=== PATIENT | male | born 1955 | race African-American/Black ===

== ENCOUNTER 2020-09-15 15:56 | Inpatient (IN) | payer OTHER ==
[~2020-09-15] VITALS: Ht 182.9 cm; Wt 119.3 kg
[2020-09-15] MEDS ORDERED: dexAMETHasone 10mg/ml Inj IV ONE (16:45)
[2020-09-15] MEDS ORDERED: Azithromycin 250 MG in NS 275 ML IV ONE ×2 (16:45)
[2020-09-15] MEDS ORDERED: cefTRIAXone 1 GM in NS 55 ML IVPB ONE (16:45)
--- NOTE | 2020-09-15 17:00 | NUR ---
ED Nurse Note: Pt placed on bed 7.
[2020-09-15] MEDS ORDERED: levETIRAcetam 1,000mg/NS100ml 100 ML IVPB ONE (17:15)
--- NOTE | 2020-09-15 18:00 | NUR ---
ED Nurse Note: Pt was brought in by MIHAI from [facility] d/t resp distress. Per ems pt was desatting unk sat on RA, now placed on a non-breather satting at 100%. Pt's FULL CODE, non-verbal, withdraws to pain, confused at all times. Pt was placed on bed and gown; hooked to monitor tech.
--- NOTE | 2020-09-15 18:10 | Emergency Room Report ---
History of Present Illness General Chief Complaint: General Complaint Source: Medical Record, EMS Present Illness HPI 64-year-old -Swedish male with past medical history of anoxic brain injury, secondary to previous hemorrhagic stroke, insulin-dependent diabetes, neuropathy, CAD, dyslipidemia, aortic atherosclerosis, SVT, anemia, bilateral lower extremity contracture, GERD, esophagitis, major depressive disorder, brought in by ambulance from [facility] for hypoxia. According to EMS, patient was found to be bradycardic and hypotensive. Patient is apparently full code according to the [facility] papers. According to EMS, patient was placed on nonrebreather face mask because on room air is SPO2 was 30%. Heart rate was initially 30%. After oxygen was provided, heart rate became sinus tachycardia and SPO2 improved to the high 90s. History is limited secondary to patient's clinical condition. He is altered at baseline. The patient's symptoms were gradual onset, severity was moderate, duration since unknown amount of time. Quality: Hypoxic Past medical history: See HPI Past surgical history: Unable To obtain Smoking: UTO Alcohol use: UTO Drug use: UTO Review of systems: CONST: No fevers ++chills, No night sweats PULMONARY: No productive cough, No shortness of breath CARDIAC: No chest pain, ++ palpitations GI: No vomiting, No diarrhea , No melena_or_BRBPR : No dysuria, No hematuria, No discharge NEURO: generalized_weakness_or_numbness, No confusion, No vision changes 14 point Review of Systems is otherwise negative except per HPI Physical Exam: GENERAL: Awake, chronically ill-appearing, hypoxic at 30% on room air. Currently on nonrebreather mask saturating 100%. EYES: Pupils reactive. Conjunctiva clear. ENT: External nose and ear appear normal. Oropharynx clear. Head atraumatic. NECK: No thyromegaly. No midline tenderness. LUNGS: Increased respiratory effort. Coarse breath sounds bilaterally. Tachypneic. CARDIAC: Tachycardic rate and rhythm. Normal radial pulses bilaterally. No significant pedal edema. ABDOMEN: Soft, nontender, and nondistended. No rebound/guarding. No hepatosplenomegaly. In soiled diaper MSK: Poor muscle tone, contractures with rigidity in extremities. Extremities without asymmetric deformity or swelling. NEUROLOGIC: Awake. Does not follow commands for motor and sensory exam. No truncal ataxia. GCS 2-4-2, protecting airway, intact gag reflex. Withdraws to pain in extremities, groans and opens eyes to sternal rub. SKIN: Warm and dry. No cyanosis or urticaria present. - COORDINATION OF CARE Case was discussed with: Patient , Patient's Physician Any labs and imaging that were ordered were interpreted as part of the medical decision making: Medical Decision Making/Plan: Differential diagnosis includes sepsis / severe sepsis /septic shock UTI, pneumonia , viral syndrome, gastroenteritis, emergent abdominal infection, among others. Vitals show tachycardia, hypothermia, and hypoxia. Patient abdomen is benign, no evidence of emergent abdominal condition. Labs show leukocytosis of 18. CMP also shows several other critical values. He is hypernatremic at 165. Calculated free water deficit is 10.6 L Creatinine is elevated at 2.0. BNP is mildly elevated Patient is known COVID positive. UA shows +UTI CXR shows multifocal pneumonia. R IJ central line placed due to difficult PIV access. Sepsis bundle initiated on arrival. Blood cultures, lactate drawn. Lactate was elevated , patient was not given 30 cc/kg IV fluids by bolus due to patient refusal from his history of CAD. Empiric antibiotics were started. Patient will be admitted to the hospital for further care and evaluation. I spoke with Dr. Cody, and reviewed the patients presentation, workup, results, and treatment. They will admit the patient for further care and evaluation, and assume care of the patient at this time. - CRITICAL CARE STATEMENT - Critical care performed 75 minutes Time is exclusive of separately billable procedures. Time includes: direct patient care, patient reassessment, coordination of patient care, review of patient's medical records, medical consultation, family consultation regarding treatment decisions and documentation of patient care. Organ systems at risk: Cardiac / Circulatory. Allergies: Coded Allergies: No Known Allergies (Unverified , 09/15/20) COVID-19 Screening Contact w/high risk pt: Yes Experienced COVID-19 symptoms?: Yes COVID-19 Testing performed INSTRUCTIONAL SYSTEMS SPECIALIST: Yes COVID-19 Screening: Positive COVID-19 COVID-19 Testing Source: nasal Nursing Documentation-PMH Hx Diabetes: Yes Hx Cerebrovascular Accident: Yes Hx Seizures: Yes Physical Exam Vital Signs Date Time Temp Pulse Resp B/P (MAP) Pulse Ox O2 Delivery O2 Flow Rate FiO2 09/15/20 17:30 144 24 120/90 (100) 95 Non-Rebreather Sp02 EP Interpretation: reviewed, abnormal Procedures Central Line Progress Central Line Placement by me: Patient consented, sterilely draped, full prep, gown, glove, mask, time out performed. Maximal sterile barrier technique used. Anesthesia: 1% lidocaine locally Location: Right IJ Device: Multiple lumen Technique: Seldinger technique. Secured with suture. Results: Venous return from all ports with easy saline flush. No complications. Compl : None Guide wire was retrieved and disposed of. ED Procedural Ultrasound by me: Central line placed by me using concurrent ultrasound guidance. Real time image archived in the medical record confirms vascular anatomy. Chest X-ray 1V Interpreted by me: Central line in SVC, Normal soft tissue, No evidence of pneumothorax. Medical Decision Making Diagnostic Impression: Primary Impression: COVID-19 Additional Impressions: Hypoxia Sepsis UTI (urinary tract infection) Hypernatremia Dehydration CHF (congestive heart failure) SANDEEP (acute kidney injury) Acute hypoxemic respiratory failure due to COVID-19 EKG Diagnostic Results Troponin ordered: Yes CHRISTY Lynn 12-lead EKG (interpreted by me) Time: 1900 Indication: Rhythm analysis Tracing visualized and Interpreted by me. Rhythm: Sinus tachycardia Rate: 120 bpm QTc: 500 Morphology: No_significant_ST_elevations_or_depressions, No STEMI Impression: Sinus tachycardia. Right bundle branch block. Left anterior fascicular block. Rhythm Strip Diag. Results Rhythm Strip Time: 18:17 EP Interpretation: yes Rate: 124 Rhythm: no PVC's, no ectopy - tachycardia Chest X-Ray Diagnostic Results Chest X-Ray Diagnostic Results : CHRISTY Lynn Chest X-Ray: Views: 1 view(s) Indication: cough Findings: CM. Mediastinum normal. Impression: Perihilar infiltrate, left lower lobe atelectasis, cardiomegaly The X-ray(s) were independently viewed and interpreted contemporaneously Electronically signed by Stefanie macias DO Chest X-Ray: Views: 1 view(s) Indication: Central line Findings: CM. Mediastinum normal. Impression: Perihilar infiltrate, left lower lobe atelectasis, cardiomegaly. No pneumothorax The X-ray(s) were independently viewed and interpreted contemporaneously Electronically signed by Stefanie macias DO Reevaluation Time: 22:00 Last Vital Signs Date Time Temp Pulse Resp B/P (MAP) Pulse Ox O2 Delivery O2 Flow Rate FiO2 09/15/20 17:30 144 24 120/90 (100) 95 Non-Rebreather Status: improved Disposition: ADMITTED INPATIENT Admit Decision Time: 18:17 Condition: Serious Referrals: Sonido Walker MD (PCP) Stefanie Mello D.O. Sep 15, 2020 18:10
[2020-09-15 18:25] VITALS: BP 120/90
[2020-09-15 18:36] LABS: HEMATOCRIT 53.3 % (42.0-52.0); HEMOGLOBIN 15.6 G/DL (14.2-18.0); MEAN CORPUSCULAR VOLUME 92 FL (80-99); PLATELET COUNT 344 K/UL (150-450); RED CELL DISTRIBUTION WIDTH 15.1 % (11.6-14.8); WHITE BLOOD COUNT 18.3 K/UL (4.8-10.8)
[2020-09-15] MEDS ORDERED: Piperacillin/Tazobactam 3.375 GM in NS 110 ML IVPB ONE (19:00)
[2020-09-15 19:01] LABS: APPEARANCE,URINE SLIGHTLY CLOUDY; BILIRUBIN, URINE NEGATIVE (NEGATIVE); GLUCOSE, URINE (UA) NEGATIVE (NEGATIVE); KETONES,URINE 1+ (NEGATIVE); LEUKOCYTE ESTERASE ,URINE 2+ (NEGATIVE); NITRITE,URINE NEGATIVE (NEGATIVE); PH,URINE 5 (4.5-8.0); PROTEIN,URINE 2+ (NEGATIVE); UROBILINOGEN,URINE 1 MG/DL (0.0-1.0)
[2020-09-15 19:02] LABS: COLOR,URINE YELLOW
--- NOTE | 2020-09-15 19:06 | NUR ---
ED Nurse Note: ERMD at bedside for central line placement
[2020-09-15] MEDS ORDERED: Lidocaine 1% Plain 30 ml INJ ONE ×2 (19:15→19:18)
[2020-09-15] MEDS ORDERED: Lidocaine 2% 20mg/ml/Epi 0.005mg/ml 20ml vial ONE (19:17)
--- NOTE | 2020-09-15 19:31 | NUR ---
ED Nurse Note: hand off given to cristi cordoba.
[2020-09-15 21:04] LABS: ALANINE AMINOTRANSFERASE 24 U/L (12-78); ALBUMIN/GLOBULIN RATIO 0.6 (1.0-2.7); ALKALINE PHOSPHATASE 120 U/L (46-116); ANION GAP 12 mmol/L (5-15); ASPARTATE AMINO TRANSFERASE 23 U/L (15-37); BILIRUBIN,TOTAL 0.7 MG/DL (0.2-1.0); BLOOD UREA NITROGEN 68 mg/dL (7-18); CALCIUM 9.7 MG/DL (8.5-10.1); CARBON DIOXIDE 27 MMOL/L (21-32); CHLORIDE 126 MMOL/L (98-107); CREATINE KINASE 304 U/L (26-308); FERRITIN 500 NG/ML (8-388); LACTATE DEHYDROGENASE 206 U/L (81-234); POTASSIUM 3.9 MMOL/L (3.5-5.1)
[2020-09-15 21:06] LABS: SODIUM 165 MMOL/L (136-145)
--- NOTE | 2020-09-15 21:38 | NUR ---
ED Nurse Note: Anythimg please contact his sister kacie [phone]
[2020-09-15 21:47] LABS: INR 1.2 (0.9-1.1)
--- NOTE | 2020-09-15 22:35 | NUR ---
NURSE NOTES: Received report from ROBERTO Morales. Pt arrive obtunded, non-verbal. No apparent distress noted. On NRB 15L O2 saturation at 100%. HR is 122, other vitals are within normal range. Skin issues found, wound care consult needed. R IJ is intact and asymptomatic, R hand 20g is intact and asymptomatic. Seizure precautions initiated. HOb elevated, side rails x3, bed alarmed, locked, and in lowest position. Will continue to monitor.
--- NOTE | 2020-09-15 23:45 | NUR ---
NURSE NOTES: Spoke with Dr. Cody for admission orders. Received orders for ID, wound care, pulmo, and cardio consults. Told pt receives Plavix 75mg at SNF for DVT ppx, received orders for heparin 5000units BID for DVT ppx. Hx of DM, received orders for accucheck Q6H and novolog sliding scale. ST eval order placed, will keep pt NPO until further notice. Started pt on D5W at 75cc/hr and cefepime 1gm. Will obtain EKG at [address] All orders read back and confirmed. Will continue to monitor.
[2020-09-16] VITALS: BP 126/84
[2020-09-16] MEDS ORDERED: NORVASC5 MG ORAL (00:11)
[2020-09-16] MEDS ORDERED: CARVEDILOL3.125 MG ORAL (00:12)
[2020-09-16] MEDS ORDERED: DOCUSATE SODIU100 M2 ORAL (00:13)
[2020-09-16] MEDS ORDERED: EFFER-K 20 MEQ20 MEQ PO (00:13)
[2020-09-16] MEDS ORDERED: GUAIFENESI100 MG/5 M ORAL (00:14)
[2020-09-16] MEDS ORDERED: KEPPRA LIQ100 MG/1 M ORAL (00:17)
[2020-09-16] MEDS ORDERED: LISINOPRIL5 MG ORAL (00:18)
[2020-09-16] MEDS ORDERED: PANTOPRAZOLE SO40 MG ORAL (00:19)
[2020-09-16] MEDS ORDERED: PLAVIX75 MG ORAL (00:19)
[2020-09-16] MEDS ORDERED: ACETAMINOPHEN325 M1 ORAL (00:20)
[2020-09-16] MEDS ORDERED: guaiFENesin 100mg/5ml Liq ud ORAL PRN (02:15)
--- NOTE | 2020-09-16 02:31 | NUR ---
NURSE NOTES: Pt remains stable at this time. site monitor shows ST, SpO2 100% on NRB 15L. No signs of distress or pain. Will continue to monitor.
[2020-09-16 04:00] VITALS: BP 134/79
[2020-09-16] MEDS ORDERED: LORazepam Inj 2mg/ml 1ml IV PRN (04:15)
--- NOTE | 2020-09-16 04:16 | NUR ---
NURSE NOTES: Pt had a 3 minute seizure episode and a 2 minute seizure episode, 1 minute apart. No desaturation noted during seizure. Vital signs currently stable. Called Dr. Cody, left . Called Dr. Alberts, received orders for ativan 1mg IVP as needed. Noted and will carry out.
--- NOTE | 2020-09-16 04:56 | NUR ---
NURSE NOTES: No seizures noted at this time. Vital signs stable. Will continue to monitor.
[2020-09-16] MEDS: NovoLOG Insulin Flexpen SUBQ SCH ×4 (05:29→21:00)
[2020-09-16] MEDS ORDERED: Cefepime HCl 1 GM in D5W 55 ML IVPB SCH ×2 (06:00→18:00)
[2020-09-16] MEDS ORDERED: NovoLOG Insulin Flexpen SUBQ SCH (06:30)
--- NOTE | 2020-09-16 07:05 | NUR ---
NURSE HAND-OFF REPORT: Important Events on Shift:[Admitted to the unit] Patient Status: [Stable] Diet: [NPO until ST Eval] Pending Orders: [NA] Pending Results/Labs:[NA] Pending MD notification:[NA] Latest Vital Signs: Temperature 97.2 , Pulse 87 , B/P 134 /79 , Respiratory Rate 20 , O2 SAT 100 , Non-Rebreather, O2 Flow Rate 15.0 . Vital Sign Comment: [Stable] EKG Rhythm: Sinus Rhythm Rhythm change?: N Notified?: Evelio Parada MD MD Response: Latest Meeks Fall Score: 50 Fall Risk: High Risk Safety Measures: Call light Within Reach, Bed Alarm Zone 1, Side Rails Side Rails x3, Bed position Low and Locked. Fall Precautions: Yellow Socks Yellow Gown Door Sign Patient Fall Education Report given to [ROBERTO Combs].
--- NOTE | 2020-09-16 07:30 | NUR ---
NURSE NOTES: Received patient in bed. Awake, A/O x3, panamanian speaking only. On BiPAP with settings as ordered. IV in the Right hand, infusing IVf as ordered. Bed low and locked, side rails up x2, call light within reach with return demonstration. Addendum: 09/16/20 at 0754 by Garret Washington RN Wrong patient.
--- NOTE | 2020-09-16 07:30 | NUR ---
NURSE NOTES: Received patient in bed. Patient is nonverbal, nonrebreather in place. Right IJ and Right forearm in place, site intact infusing IVf as ordered. Bed low and locked, side rial sails up x2, call light within reach - unable to return demonstration. Condom catheter in place.
[2020-09-16 08:00] VITALS: BP 151/85
[2020-09-16] MEDS: levETIRAcetam 500mg/5ml Liquid ORAL SCH ×2 (09:00→20:54)
[2020-09-16] MEDS: Docusate 100mg cap ORAL SCH (09:00)
[2020-09-16] MEDS: Lisinopril 2.5mg tab ORAL SCH (09:01)
[2020-09-16] MEDS: dexAMETHasone 10mg/ml Inj IV SCH (09:01)
[2020-09-16] MEDS: Heparin 5000 units/ml inj SUBQ SCH ×2 (09:05→20:57)
--- NOTE | 2020-09-16 09:09 | Cardiac Electrophysiology PN ---
Subjective Subjective Seen and DW RN Dictated [id number] Objective Last 24 Hour Vital Signs Date Time Temp Pulse Resp B/P (MAP) Pulse Ox O2 Delivery O2 Flow Rate FiO2 09/16/20 04:00 Non-Rebreather 15.0 09/16/20 04:00 87 09/16/20 04:00 Non-Rebreather 15.0 09/16/20 04:00 97.2 100 20 134/79 (97) 100 09/16/20 04:00 15.0 100 09/16/20 00:00 15.0 100 09/16/20 00:00 Non-Rebreather 15.0 09/16/20 00:00 97.9 101 21 126/84 (98) 100 09/16/20 00:00 121 09/15/20 22:23 Non-Rebreather 15.0 09/15/20 21:45 97.9 122 19 132/78 98 09/15/20 18:25 118 24 Non-Rebreather 09/15/20 18:25 24 120/90 95 Non-Rebreather 09/15/20 17:30 144 24 120/90 (100) 95 Non-Rebreather Intake and Output 09/15/20 09/16/20 19:00 07:00 Intake Total 416.25 ml Output Total 300 ml Balance 116.25 ml Intake IV Total 416.25 ml Output Urine Total 300 ml Laboratory Tests Test 09/15/20 18:20 09/15/20 20:00 09/15/20 23:00 09/16/20 05:20 White Blood Count 18.3 K/UL (4.8-10.8) H Red Blood Count 5.80 M/UL (4.70-6.10) Hemoglobin 15.6 G/DL (14.2-18.0) Hematocrit 53.3 % (42.0-52.0) H Mean Corpuscular Volume 92 FL (80-99) Mean Corpuscular Hemoglobin 26.9 PG (27.0-31.0) L Mean Corpuscular Hemoglobin Concent 29.2 G/DL (32.0-36.0) L Red Cell Distribution Width 15.1 % (11.6-14.8) H Platelet Count 344 K/UL (150-450) Mean Platelet Volume 8.9 FL (6.5-10.1) Neutrophils (%) (Auto) % (45.0-75.0) Lymphocytes (%) (Auto) % (20.0-45.0) Monocytes (%) (Auto) % (1.0-10.0) Eosinophils (%) (Auto) % (0.0-3.0) Basophils (%) (Auto) % (0.0-2.0) Differential Total Cells Counted 100 Neutrophils % (Manual) 87 % (45-75) H Lymphocytes % (Manual) 8 % (20-45) L Monocytes % (Manual) 4 % (1-10) Eosinophils % (Manual) 1 % (0-3) Basophils % (Manual) 0 % (0-2) Band Neutrophils 0 % (0-8) Platelet Estimate Adequate Platelet Morphology Giant Platelets Occasional Red Blood Cell Morphology Normal Urine Color Yellow Urine Appearance Slightly cloudy Urine pH 5 (4.5-8.0) Urine Specific [place] 1.020 (1.005-1.035) Urine Protein 2+ (NEGATIVE) H Urine Glucose (UA) Negative (NEGATIVE) Urine Ketones 1+ (NEGATIVE) H Urine Blood Negative (NEGATIVE) Urine Nitrite Negative (NEGATIVE) Urine Bilirubin Negative (NEGATIVE) Urine Urobilinogen 1 MG/DL (0.0-1.0) H Urine Leukocyte Esterase 2+ (NEGATIVE) H Urine RBC 0-2 /HPF (0 - 0) H Urine WBC 10-15 /HPF (0 - 0) H Urine Squamous Epithelial Cells Moderate /LPF (NONE/OCC) H Urine Bacteria Moderate /HPF (NONE) H Prothrombin Time 13.1 SEC (9.30-11.50) H Prothromb Time International Ratio 1.2 (0.9-1.1) H Activated Partial Thromboplast Time 28 SEC (23-33) D-Dimer 4.89 mg/L FEU (0.00-0.49) H Sodium Level 165 MMOL/L (136-145) *H Potassium Level 3.9 MMOL/L (3.5-5.1) Chloride Level 126 MMOL/L (98-107) H Carbon Dioxide Level 27 MMOL/L (21-32) Anion Gap 12 mmol/L (5-15) Blood Urea Nitrogen 68 mg/dL (7-18) H Creatinine 2.0 MG/DL (0.55-1.30) H Estimat Glomerular Filtration Rate 40.8 mL/min (>60) Glucose Level 142 MG/DL (74-106) H Lactic Acid Level 1.40 mmol/L (0.4-2.0) Calcium Level 9.7 MG/DL (8.5-10.1) Phosphorus Level 3.0 MG/DL (2.5-4.9) Magnesium Level 3.3 MG/DL (1.8-2.4) H Ferritin 500 NG/ML (8-388) H Total Bilirubin 0.7 MG/DL (0.2-1.0) Aspartate Amino Transf (AST/SGOT) 23 U/L (15-37) Alanine Aminotransferase (ALT/SGPT) 24 U/L (12-78) Alkaline Phosphatase 120 U/L (46-116) H Lactate Dehydrogenase 206 U/L (81-234) Total Creatine Kinase 304 U/L (26-308) Troponin I 0.010 ng/mL (0.000-0.056) C-Reactive Protein, Quantitative 6.7 mg/dL (0.00-0.90) H Pro-B-Type Natriuretic Peptide 226 pg/mL (0-125) H Total Protein 8.3 G/DL (6.4-8.2) H Albumin 3.0 G/DL (3.4-5.0) L Globulin 5.3 g/dL Albumin/Globulin Ratio 0.6 (1.0-2.7) L Lipase 108 U/L (73-393) POC Whole Blood Glucose 127 MG/DL (74-106) H 156 MG/DL (74-106) H Microbiology Date/Time Source Procedure Growth Status 09/15/20 18:20 Nasopharynx SARS-CoV-2 RdRp Gene Assay - Final Complete Catracho Lundy MD Sep 16, 2020 09:09
--- NOTE | 2020-09-16 10:30 | Consultation ---
DATE OF CONSULTATION: 09/16/2020 INFECTIOUS DISEASES CONSULTATION CONSULTING PHYSICIAN: Héctor Sow MD. PRIMARY ATTENDING PHYSICIAN: Huy Cody MD. REASON FOR CONSULTATION: Sepsis, UTI, and likely COVID disease. HISTORY OF PRESENT ILLNESS: This is a 64-year-old male admitted yesterday from group home facility. He became hypoxemic at the facility with O2 saturation of 30%, hypotensive and bradycardic. After initiation of the face mask, he became tachycardic. At the time of admission, heart rate was 144. The patient has leukocytosis of 18.3, renal failure, and hypernatremia. PAST MEDICAL HISTORY: Diabetes mellitus on insulin, anoxic brain injury secondary to hemorrhagic CVA, coronary artery disease, dyslipidemia, seizure disorder. ALLERGIES: No known drug allergies. MEDICATIONS: Getting clonidine, Protonix, lisinopril, Keppra, carvedilol, amlodipine, dexamethasone, heparin, insulin, cefepime, lorazepam, Robitussin, Tylenol. SOCIAL HISTORY: [facility] resident. Single. The patient is nonverbal, no information can be obtained by the patient. PHYSICAL EXAMINATION: VITAL SIGNS: Temperature 97.8, pulse 105, blood pressure 151/85. GENERAL APPEARANCE: Seems to be obese. HEAD AND NECK: [place] conjunctiva. HEART: Tachycardic. LUNGS: The patient is on nonrebreathing mask 15 liters/minutes, clear. FiO2 is 100%. ABDOMEN: Soft and nontender. EXTREMITIES: No edema. NEUROLOGIC: Open eyes, nonverbal. LABORATORY AND DIAGNOSTIC DATA: COVID rapid test was negative. WBC 18.3, hemoglobin 15.6, hematocrit 53.3, platelets 344. Glucose is 156, sodium 165, potassium 3.9, chloride 126, carbon dioxide 27, BUN 68, creatinine 2. AST and ALT are within normal limits. Albumin is 3. UA showed wbc's of 10 to 15, bacteria moderate. IMPRESSION: Sepsis with tachycardia and leukocytosis, has pyuria, may have UTI, has hypoxemic respiratory failure highly suspected of COVID-19 disease although rapid test is negative, has diabetes mellitus, acute renal failure, hypernatremia, obesity, dehydration. RECOMMENDATION: Continue with dexamethasone. Decrease the dose of cefepime because of renal failure. We will send COVID-19 PCR. At the end of my exam, I thank Dr. Cody, for involving me in the care of this patient. Héctor Sow M.D. DR: Odilia JOB#: [id number] CC:
--- NOTE | 2020-09-16 11:28 | Diagnostic Imaging Report ---
Procedure: XRAY Chest 1v Reason for study: Reason For Exam: COUGH Comparison films: None. FINDINGS: A single one view chest is obtained. Vascularity is normal. Mild hazy densities in the lung bases noted perhaps early infiltrates. Cardiac and mediastinal silhouette are within normal limits. CP angles are sharp. Aorta is tortuous. IMPRESSION: Mild hazy basilar infiltrates.
--- NOTE | 2020-09-16 11:29 | Consultation ---
DATE OF CONSULTATION: 09/16/2020 CARDIOLOGY CONSULTATION CONSULTING PHYSICIAN: Catracho Lundy MD. REFERRING PHYSICIAN: Huy Cody MD. REASON FOR CONSULTATION: Tachycardia. HISTORY OF PRESENT ILLNESS: The patient is a 64-year-old gentleman with history of hypertension, anoxic brain injury secondary to previous intracranial bleed, diabetes, coronary artery disease, hyperlipidemia, history of SVT, has bilateral lower extremity contractures, , major depression, was brought in by ambulance from [facility] nursing facility for hypoxia and bradycardia. The patient was placed on a non-rebreather face mask as the room air saturation was only 30%. The heart rate initially was in the 30s. However, after oxygen was provided, the patient developed sinus tachycardia and oxygen saturation improved to high 90s. At the time of my evaluation, the patient is nonverbal and opens his eye, but not able to provide any information. REVIEW OF SYSTEMS: Cannot be obtained. PAST MEDICAL HISTORY: As mentioned above. FAMILY HISTORY: Noncontributory. SOCIAL HISTORY: [facility]. The patient does not smoke. PHYSICAL EXAMINATION: VITAL SIGNS: Show blood pressure of 134/79, pulse is 100, respirations 18. HEAD AND NECK: Showed no JVD. LUNGS: Coarse rhonchi. CARDIOVASCULAR: Shows regular S1 and S2 with no gallop. ABDOMEN: Soft. EXTREMITIES: He has contractures. LABORATORY AND DIAGNOSTIC DATA: White count of 18.3, hemoglobin 15, hematocrit 53, and platelet count of 344. Sodium 165, potassium 3.9, BUN of 68, creatinine 2.9, and glucose of 142. Troponin is negative. His EKG showed sinus rhythm, right bundle-branch block and left anterior fascicular block. His initial EKG showed sinus tachycardia in the 150s. ASSESSMENT/PLAN: 1. Tachycardia, due to respiratory failure. The patient currently is on 100% non-rebreather face mask. Initial rapid COVID was negative, but the PCR was pending. The patient's white count was also high 18,000 and is already on IV antibiotic. 2. History of bradycardia, which was due to respiratory failure. After oxygen was provided, the heart rate improved to 150s. No evidence of atrial fibrillation. 3. Bifascicular block with right bundle-branch block and left anterior fascicular block. 4. Status post hemorrhagic CVA and psych history, currently nonverbal. 5. Hypertension, on lisinopril 5 mg daily and Coreg 3.125 mg b.i.d. and amlodipine 5 mg daily. 6. Diabetes, on insulin. 7. Sepsis. The patient was already started on IV antibiotics. Thank you very much for allowing me to participate in the care of this patient. Please do not hesitate to contact me for any questions regarding my evaluation. Echocardiogram is pending at time of this dictation. Catracho Lundy M.D. DR: BESS JOB#: [id number] CC:
[2020-09-16 11:57] VITALS: BP 146/98
--- NOTE | 2020-09-16 12:30 | Consultation ---
History of Present Illness General Date patient seen: Sep 16, 2020 Reason for Hospitalization: General Complaint Present Illness HPI This is a very unfortunate 64-year-old -[place] male with past medical history of anoxic brain injury, secondary to previous hemorrhagic stroke, insulin-dependent diabetes, neuropathy, CAD, dyslipidemia, aortic atherosclerosis, SVT, anemia, bilateral lower extremity contracture, GERD, esophagitis, major depressive disorder, brought in by ambulance from [facility] for hypoxia. per report, patient was found to be bradycardic and hypotensive. History is limited secondary to patient's clinical condition. He is altered at baseline. abnormal labs, lfts, decubitus, nutrition, surgery called to evaluate and assist with care. Allergies: Coded Allergies: No Known Allergies (Unverified , 09/15/20) COVID-19 Screening Contact w/high risk pt: Yes Experienced COVID-19 symptoms?: Yes Coronavirus symptoms experienc: Shortness of Breath Medication History Scheduled Amlodipine Besylate (Norvasc), 5 MG ORAL DAILY, (Reported) Carvedilol* (Carvedilol*), 3.125 MG ORAL EVERY 12 HOURS, (Reported) Clopidogrel Bisulfate* (Plavix*), 75 MG ORAL DAILY, (Reported) Docusate Sodium (Docusate Sodium), 100 MG ORAL DAILY, (Reported) Levetiracetam (Keppra), 10 ML ORAL EVERY 12 HOURS, (Reported) Lisinopril (Lisinopril*), 5 MG ORAL DAILY, (Reported) Pantoprazole* (Pantoprazole*), 20 MG ORAL DAILY, (Reported) Potassium Bicarbonate/Cit Ac (Effer-K 20 Meq Tablet Eff), 20 MEQ PO DAILY, (Reported) Scheduled PRN Acetaminophen* (Acetaminophen 325MG Tablet*), 650 MG ORAL Q4H PRN for For Pain, (Reported) Guaifenesin* (Guaifenesin*), 5 ML ORAL Q4H PRN for FOR COUGH, (Reported) Patient History Limited by: medical condition History Provided By: Medical Record, PMD Healthcare decision maker Resuscitation status Advanced Directive on File Past Medical/Surgical History Past Medical/Surgical History: (1) Dehydration (2) CHF (congestive heart failure) (3) Hypernatremia (4) SANDEEP (acute kidney injury) (5) Hypoxia (6) Sepsis (7) UTI (urinary tract infection) (8) COVID-19 (9) Acute hypoxemic respiratory failure due to COVID-19 Review of Systems Review of Symptoms General ROS: no weight loss or fever Psychological ROS: no depression or mood changes, no memory loss Ophthalmic ROS: no visual changes or eye irritation ENT ROS: no nasal congestion, hearing loss, dizziness Allergy and Immunology ROS: no allergic symptoms or urticaria Hematological and Lymphatic ROS: no swollen glands, unusual bleeding or bruising Endocrine ROS: no polyuria, polydipsia, weight changes, temperature intolerance Respiratory ROS: no cough, shortness of breath, or wheezing Cardiovascular ROS: no chest pain or dyspnea on exertion Gastrointestinal ROS: denies abdominal pain, bright red blood in stool. Musculoskeletal ROS: no myalgias or arthralgias Neurological ROS: no TIA or stroke symptoms Dermatological ROS: no new or changing skin lesions, rashes or pruritis limited given baseline medical condition Physical Exam Physical Exam General appearance: no distress, appears stated age Head: Normocephalic, without obvious abnormality, atraumatic Eyes: conjunctivae/corneas clear. PERRL, EOM's intact. Fundi benign Throat: Lips, mucosa, and tongue normal. Teeth and gums normal Neck: supple, symmetrical, trachea midline, no adenopathy, thyroid: not enlarged, symmetric, no tenderness/mass/nodules, no carotid bruit and no JVD Lungs: clear to auscultation bilaterally Heart: regular rate and rhythm, S1, S2 normal, no murmur, click, rub or gallop Abdomen: soft, non-tender. Bowel sounds normal. No masses, no organomegaly Extremities: extremities normal, atraumatic, no cyanosis or edema Pulses: 2+ and symmetric Skin: Skin see below Neurologic: Grossly normal Last 24 Hour Vital Signs Date Time Temp Pulse Resp B/P (MAP) Pulse Ox O2 Delivery O2 Flow Rate FiO2 09/16/20 11:57 97.3 85 19 146/98 (114) 99 09/16/20 09:02 105 151/85 09/16/20 09:02 105 151/85 09/16/20 09:01 151/85 09/16/20 08:00 97.8 104 19 151/85 (107) 97 09/16/20 08:00 15.0 100 09/16/20 08:00 Non-Rebreather 15.0 09/16/20 07:47 95 09/16/20 04:00 Non-Rebreather 15.0 09/16/20 04:00 87 09/16/20 04:00 Non-Rebreather 15.0 09/16/20 04:00 97.2 100 20 134/79 (97) 100 09/16/20 04:00 15.0 100 09/16/20 00:00 15.0 100 09/16/20 00:00 Non-Rebreather 15.0 09/16/20 00:00 97.9 101 21 126/84 (98) 100 09/16/20 00:00 121 09/15/20 22:23 Non-Rebreather 15.0 09/15/20 21:45 97.9 122 19 132/78 98 09/15/20 18:25 118 24 Non-Rebreather 09/15/20 18:25 24 120/90 95 Non-Rebreather 09/15/20 17:30 144 24 120/90 (100) 95 Non-Rebreather Intake and Output 09/15/20 09/16/20 19:00 07:00 Intake Total 416.25 ml Output Total 300 ml Balance 116.25 ml Intake IV Total 416.25 ml Output Urine Total 300 ml Laboratory Tests Test 09/15/20 18:20 09/15/20 20:00 09/15/20 23:00 09/16/20 05:20 White Blood Count 18.3 K/UL (4.8-10.8) H Red Blood Count 5.80 M/UL (4.70-6.10) Hemoglobin 15.6 G/DL (14.2-18.0) Hematocrit 53.3 % (42.0-52.0) H Mean Corpuscular Volume 92 FL (80-99) Mean Corpuscular Hemoglobin 26.9 PG (27.0-31.0) L Mean Corpuscular Hemoglobin Concent 29.2 G/DL (32.0-36.0) L Red Cell Distribution Width 15.1 % (11.6-14.8) H Platelet Count 344 K/UL (150-450) Mean Platelet Volume 8.9 FL (6.5-10.1) Neutrophils (%) (Auto) % (45.0-75.0) Lymphocytes (%) (Auto) % (20.0-45.0) Monocytes (%) (Auto) % (1.0-10.0) Eosinophils (%) (Auto) % (0.0-3.0) Basophils (%) (Auto) % (0.0-2.0) Differential Total Cells Counted 100 Neutrophils % (Manual) 87 % (45-75) H Lymphocytes % (Manual) 8 % (20-45) L Monocytes % (Manual) 4 % (1-10) Eosinophils % (Manual) 1 % (0-3) Basophils % (Manual) 0 % (0-2) Band Neutrophils 0 % (0-8) Platelet Estimate Adequate Platelet Morphology Giant Platelets Occasional Red Blood Cell Morphology Normal Urine Color Yellow Urine Appearance Slightly cloudy Urine pH 5 (4.5-8.0) Urine Specific [place] 1.020 (1.005-1.035) Urine Protein 2+ (NEGATIVE) H Urine Glucose (UA) Negative (NEGATIVE) Urine Ketones 1+ (NEGATIVE) H Urine Blood Negative (NEGATIVE) Urine Nitrite Negative (NEGATIVE) Urine Bilirubin Negative (NEGATIVE) Urine Urobilinogen 1 MG/DL (0.0-1.0) H Urine Leukocyte Esterase 2+ (NEGATIVE) H Urine RBC 0-2 /HPF (0 - 0) H Urine WBC 10-15 /HPF (0 - 0) H Urine Squamous Epithelial Cells Moderate /LPF (NONE/OCC) H Urine Bacteria Moderate /HPF (NONE) H Prothrombin Time 13.1 SEC (9.30-11.50) H Prothromb Time International Ratio 1.2 (0.9-1.1) H Activated Partial Thromboplast Time 28 SEC (23-33) D-Dimer 4.89 mg/L FEU (0.00-0.49) H Sodium Level 165 MMOL/L (136-145) *H Potassium Level 3.9 MMOL/L (3.5-5.1) Chloride Level 126 MMOL/L (98-107) H Carbon Dioxide Level 27 MMOL/L (21-32) Anion Gap 12 mmol/L (5-15) Blood Urea Nitrogen 68 mg/dL (7-18) H Creatinine 2.0 MG/DL (0.55-1.30) H Estimat Glomerular Filtration Rate 40.8 mL/min (>60) Glucose Level 142 MG/DL (74-106) H Lactic Acid Level 1.40 mmol/L (0.4-2.0) Calcium Level 9.7 MG/DL (8.5-10.1) Phosphorus Level 3.0 MG/DL (2.5-4.9) Magnesium Level 3.3 MG/DL (1.8-2.4) H Ferritin 500 NG/ML (8-388) H Total Bilirubin 0.7 MG/DL (0.2-1.0) Aspartate Amino Transf (AST/SGOT) 23 U/L (15-37) Alanine Aminotransferase (ALT/SGPT) 24 U/L (12-78) Alkaline Phosphatase 120 U/L (46-116) H Lactate Dehydrogenase 206 U/L (81-234) Total Creatine Kinase 304 U/L (26-308) Troponin I 0.010 ng/mL (0.000-0.056) C-Reactive Protein, Quantitative 6.7 mg/dL (0.00-0.90) H Pro-B-Type Natriuretic Peptide 226 pg/mL (0-125) H Total Protein 8.3 G/DL (6.4-8.2) H Albumin 3.0 G/DL (3.4-5.0) L Globulin 5.3 g/dL Albumin/Globulin Ratio 0.6 (1.0-2.7) L Lipase 108 U/L (73-393) POC Whole Blood Glucose 127 MG/DL (74-106) H 156 MG/DL (74-106) H Test 09/16/20 11:52 POC Whole Blood Glucose Pending Microbiology Date/Time Source Procedure Growth Status 09/15/20 18:20 Nasopharynx SARS-CoV-2 RdRp Gene Assay - Final Complete Height (Feet): 6 Height (Inches): 0.00 Weight (Pounds): 263 Medications Current Medications Medications (Trade) Dose Ordered Sig/Ciro Route PRN Reason Start Time Stop Time Status Last Admin Dose Admin Acetaminophen (Tylenol) 650 mg Q4H PRN ORAL For Pain 09/16/20 02:15 10/16/20 02:14 Amlodipine Besylate (Norvasc) 5 mg DAILY ORAL 09/16/20 09:00 10/16/20 08:59 09/16/20 09:02 Carvedilol (Coreg) 3.125 mg EVERY 12 HOURS ORAL 09/16/20 09:00 10/16/20 08:59 09/16/20 09:02 Cefepime HCl 1 gm/ Dextrose 55 ml @ 110 mls/hr Q12H IVPB 09/16/20 18:00 09/23/20 17:59 Clonidine HCl (Catapres Tab) 0.1 mg Q4H PRN ORAL sbp>170 09/16/20 09:15 12/15/20 09:14 Dexamethasone Sodium Phosphate (Decadron 10mg/ ml Inj) 6 mg DAILY IV 09/16/20 09:00 12/15/20 08:59 09/16/20 09:01 Dextrose 1,000 ml @ 75 mls/hr [id number] IV 09/16/20 00:00 10/16/20 00:00 09/16/20 00:27 Dextrose (Dextrose 50%) 25 ml Q30M PRN IV Hypoglycemia 09/16/20 00:00 12/15/20 00:00 Dextrose (Dextrose 50%) 50 ml Q30M PRN IV Hypoglycemia 09/16/20 00:00 12/15/20 00:00 Docusate Sodium (Colace) 100 mg DAILY ORAL 09/16/20 09:00 10/16/20 08:59 09/16/20 09:00 Guaifenesin (Robitussin) 100 mg Q4H PRN ORAL FOR COUGH 09/16/20 02:15 12/15/20 02:14 Heparin Sodium (Porcine) (Heparin 5000 units/ml) 5,000 units EVERY 12 HOURS SUBQ 09/16/20 09:00 10/31/20 08:59 09/16/20 09:05 Insulin Aspart (NovoLOG) BEFORE MEALS AND HS SUBQ 09/16/20 06:30 12/15/20 06:29 09/16/20 05:29 Levetiracetam (Keppra) 1,000 mg EVERY 12 HOURS ORAL 09/16/20 09:00 10/16/20 08:59 09/16/20 09:00 Lisinopril (ZestriL) 5 mg DAILY ORAL 09/16/20 09:00 10/16/20 08:59 09/16/20 09:01 Lorazepam (Ativan 2mg/ml 1ml) 1 mg NEEDED PRN IV For Seizures 09/16/20 04:15 09/23/20 04:14 Norepinephrine Bitartrate 8 mg/ Sodium Chloride 250 ml @ 0 mls/hr Q24H IV 09/15/20 17:15 09/18/20 17:14 Pantoprazole (Protonix) 40 mg DAILY ORAL 09/16/20 09:00 10/16/20 08:59 09/16/20 09:00 Assessment/Plan Problem List: (1) Dehydration ICD Codes: E86.0 - Dehydration SNOMED: 69121048, 0473429 (2) CHF (congestive heart failure) ICD Codes: I50.9 - Heart failure, unspecified SNOMED: 38788446 (3) Hypernatremia ICD Codes: E87.0 - Hyperosmolality and hypernatremia SNOMED: 958789481 (4) SANDEEP (acute kidney injury) ICD Codes: N17.9 - Acute kidney failure, unspecified SNOMED: 43712784, 8694693 (5) Hypoxia ICD Codes: R09.02 - Hypoxemia SNOMED: 823427862 (6) Sepsis Assessment & Plan: 64-year-old male extensive medical history at baseline mental status without significant responsiveness alert unable to cooperate with exam presented from facility identified to have significant leukocytosis ab normal labs elevated LFTs with multiple skin concerns including deep tissue injury and opening near the buttock concerning for potential abscess. On evaluation this is more of a decubitus breakdown on the buttock right 1 cm by centimeter without drainage. It does not seem to be a prior abscess or current abscess. No I&D indicated at this time. Chest x-ray noted haziness currently Covid negative on initial examination potentially needs to be rechecked. No acute surgical intervention planned at this time. Okay for diet as tolerated via tube. Continue IV antibiotics per infectious disease. Respiratory as per pulmonology. Trend labs. Will follow with recommendations thank you for let me participate patient's care ICD Codes: A41.9 - Sepsis, unspecified organism SNOMED: 42488504 (7) UTI (urinary tract infection) ICD Codes: N39.0 - Urinary tract infection, site not specified SNOMED: 51815219 (8) COVID-19 ICD Codes: U07.1 - COVID-19 SNOMED: 875070217 (9) Acute hypoxemic respiratory failure due to COVID-19 ICD Codes: U07.1 - COVID-19; J96.01 - Acute respiratory failure with hypoxia SNOMED: 074613600 Jono Hernandez Sep 16, 2020 12:30
--- NOTE | 2020-09-16 12:40 | NUR ---
NURSE NOTES:WOUND CARE NOTES:Pt presented on admission with Full thickness Pressure injury lower R buttocks(L)1cm x (W)0.8cm x (D)0.2cm. Base of wound is 75% granular,25% slough . Edges are flat and adherent to base of wound. Periwound is indurated with non-blanchable erythema. Hyperpigmentation noted to cleft of buttocks. scattered areas of darker skin tone without erythema or induration noted to sacrum. Atrophic scar with scattered maroon and fluctuant areas noted to L heel. DTPI noted to medial R heel.(L)2.2cm x (W)3cm. Base of pressure injury is indurated and maroon. Periwound is boggy with scattered areas of darker skin tone without erythema or induration noted. Bilat foot drop noted. Tx.Plan:Cleanse wound lower R buttocks with Saline. Apply Therahoney. Apply Moisture Barrier periwound. Cover with Optifoam drsg Daily and prn. Apply Moisture Barrier Paste to Sacrum. Cover with Optifoam drsg. Change every 3 days and prn. Apply Cavilon Skin Barrier to Both heels. Cover each heel with Optifoam drsg. Change every 7 days and prn. Reposition at least every 2hours or as tolerated. Off-load heels with pillows. APM/JAY Mattress overlay.
[2020-09-16] MEDS ORDERED: Varibar Nectar 240ml MC PRN (12:45)
[2020-09-16] MEDS ORDERED: Varibar Honey 250ml MC PRN (12:45)
[2020-09-16] MEDS ORDERED: Varibar Thin Liquid powder 148gm MC PRN (12:45)
[2020-09-16] MEDS ORDERED: Varibar Pudding 230ml MC PRN (12:45)
--- NOTE | 2020-09-16 12:51 | NUR ---
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
--- NOTE | 2020-09-16 15:45 | Consultation ---
DATE OF CONSULTATION: 09/16/2020 INFECTIOUS DISEASES CONSULTATION NOTE: INCOMPLETE DICTATION CONSULTING PHYSICIAN: Héctor Sow MD. PRIMARY ATTENDING PHYSICIAN: Huy Cody MD. REASON FOR CONSULTATION: Sepsis, UTI, and likely COVID-19 disease. HISTORY OF PRESENT ILLNESS: This is a 64-year-old male admitted yesterday from a [place] [facility] facility because of hypoxemia. He had O2 saturation below 30%, was tachycardic and hypotensive at the time of admission, had leukocytosis of 18.3, was found to have acute renal failure and hypernatremia. PAST MEDICAL HISTORY: Diabetes mellitus type 2 on insulin, anoxic brain injury secondary to hemorrhagic CVA, hyperlipidemia, coronary artery disease, and seizure disorder. ALLERGIES: No known drug allergies. MEDICATIONS: Clonidine, Protonix, lisinopril, Keppra, Colace, carvedilol, amlodipine, dexamethasone, heparin, insulin, cefepime, lorazepam, guaifenesin, and Tylenol. Got a dose of Zosyn. SOCIAL HISTORY: Full copy was dictated Héctor Sow M.D. DR: CORBIN JOB#: [id number] CC: NIKO
--- NOTE | 2020-09-16 15:58 | Diagnostic Imaging Report ---
Indication: Post line placement Technique: One view of the chest Comparison: 2 hours earlier Findings: Interim placement right jugular central venous catheter, tip projecting at the level of the mid superior vena cava. No pneumothorax. Mild interstitial congestion is again demonstrated, probably unchanged. The heart is borderline large Impression: Right jugular central venous catheter, in good position. No radiographically evident complication Bilateral interstitial congestion
[2020-09-16 16:00] VITALS: BP 152/90
--- NOTE | 2020-09-16 16:11 | History & Physical ---
History and Physical History & Physicial 64-year-old male admitted from nursing home facility. He became hypoxemic at the facility and tachycardic. At the time of admission, heart rate was 144. patient is COVID+ PAST MEDICAL HISTORY: Diabetes mellitus on insulin, anoxic brain injury secondary to hemorrhagic CVA, coronary artery disease, dyslipidemia, seizure disorder. ALLERGIES: No known drug allergies. MEDICATIONS: reviewed SOCIAL HISTORY: senior care resident. bedound PHYSICAL EXAMINATION: deferred due to covid Laboratory Tests 09/15/20 18:20: White Blood Count 18.3H, Red Blood Count 5.80, Hemoglobin 15.6, Hematocrit 53.3H , Mean Corpuscular Volume 92, Mean Corpuscular Hemoglobin 26.9L, Mean Corpuscular Hemoglobin Concent 29.2L, Red Cell Distribution Width 15.1H, Platelet Count 344, Mean Platelet Volume 8.9, Neutrophils (%) (Auto) , Lymphocytes (%) (Auto) , Monocytes (%) (Auto) , Eosinophils (%) (Auto) , Basophils (%) (Auto) , Differential Total Cells Counted 100, Neutrophils % (Manual) 87H, Lymphocytes % (Manual) 8L, Monocytes % (Manual) 4, Eosinophils % (Manual) 1, Basophils % (Manual) 0, Band Neutrophils 0, Platelet Estimate Adequate, Platelet Morphology , Giant Platelets Occasional, Red Blood Cell Morphology Normal, Urine Color Yellow, Urine Appearance Slightly cloudy, Urine pH 5, Urine Specific [place] 1.020, Urine Protein 2+H, Urine Glucose (UA) N egative, Urine Ketones 1+H, Urine Blood Negative, Urine Nitrite Negative, Urine Bilirubin Negative, Urine Urobilinogen 1H, Urine Leukocyte Esterase 2+H, Urine RBC 0-2H, Urine WBC 10-15H, Urine Squamous Epithelial Cells ModerateH, Urine Bacteria ModerateH 09/15/20 20:00: Prothrombin Time 13.1H, Prothromb Time International Ratio 1.2H, Activated Partial Thromboplast Time 28, D-Dimer 4.89H, Sodium Level 165*H, Potassium Level 3.9, Chloride Level 126H, Carbon Dioxide Level 27, Anion Gap 12, Blood Urea Nitrogen 68H, Creatinine 2.0H, Estimat Glomerular Filtration Rate 40.8, Glucose Level 142H, Lactic Acid Level 1.40, Calcium Level 9.7, Phosphorus Level 3.0, Magnesium Level 3.3H, Ferritin 500H, Total Bilirubin 0.7, Aspartate Amino Transf (AST/SGOT) 23, Alanine Aminotransferase (ALT/SGPT) 24, Alkaline Phosphatase 120H , Lactate Dehydrogenase 206, Total Creatine Kinase 304, Troponin I 0.010, C- Reactive Protein, Quantitative 6.7H, Pro-B-Type Natriuretic Peptide 226H, Total Protein 8.3H, Albumin 3.0L, Globulin 5.3, Albumin/Globulin Ratio 0.6L, Lipase 108 09/15/20 23:00: POC Whole Blood Glucose 127H 09/16/20 05:20: POC Whole Blood Glucose 156H 09/16/20 11:52: POC Whole Blood Glucose [Pending] IMPRESSION: Sepsis pyuria, possible UTI, hypoxemic respiratory failure due to COVID-19 diabetes mellitus, acute renal failure, hypernatremia, obesity, dehydration. PLAN Decadron ID noted antibiotics oxygen as needed monitor oxygen needs DVT prophylaxis snf meds nutrition as able monitor labs and imaging impression, plan, and exam edited and reviewed in detail care discussed with Sonido Redmond MD Sep 16, 2020 16:11
[2020-09-16] MEDS ORDERED: PANTOPRAZOLE SO20 MG ORAL (16:32)
[2020-09-16] MEDS ORDERED: VITAMIN D325 MC1 PO (16:32)
[2020-09-16] MEDS ORDERED: LANTUS SOL100 UNIT/1 SUBQ (16:32)
[2020-09-16] MEDS ORDERED: HUMALOG100 UNIT/4 SUBQ (16:32)
--- NOTE | 2020-09-16 19:14 | NUR ---
NURSE HAND-OFF REPORT: Important Events on Shift:[wound eval, wean O2 to NC 2 L] Patient Status: [FULL CODE] Diet: [NPO] Pending Orders: [ST eval] Pending Results/Labs:[] Pending MD notification:[] Latest Vital Signs: Temperature 97.5 , Pulse 93 , B/P 152 /90 , Respiratory Rate 20 , O2 SAT 100 , Non-Rebreather, O2 Flow Rate 15.0 . Vital Sign Comment: [] EKG Rhythm: Sinus Rhythm Rhythm change?: N Notified?: Evelio Parada MD MD Response: Latest Meeks Fall Score: 50 Fall Risk: High Risk Safety Measures: Call light Within Reach, Bed Alarm Zone 1, Side Rails Side Rails x3, Bed position Low and Locked. Fall Precautions: Yellow Socks Yellow Gown Door Sign Patient Fall Education Report given to [Thiago RN].
--- NOTE | 2020-09-16 19:44 | NUR ---
NURSE NOTES: Received report from Felix Paige RN. pt is seen in semi- bateman's position. Pt is flat affect, eyes track. With o2 cannula o2 sat- 98%. No pain noted. Not in respiratory distress. Pt on NPO pending ST eval, with condom cath patent and intact. RIJ TLC intact and patent running d5w at 75ml/ hr. Not in respiratory distress. Bed in lowest position, bed in locked. Call light within reach. Continue to plan of care.
[2020-09-16 20:00] VITALS: BP 120/72
--- NOTE | 2020-09-16 22:40 | NUR ---
NURSE NOTES: Pt has 8 beats of VTAC, EKG done, converted to SR with BBB, pt is asymptomatic, no pain. VS WNL. O2 sat- 100%. Dr. Lundy made aware, waiting for response for any orders. Will Continue to monitor pt closely.
[2020-09-17] VITALS: BP 123/74
--- NOTE | 2020-09-17 01:56 | NUR ---
NURSE NOTES: Sponge bath given, smear only noted for BM, Reinsert condom cath. Oral care done. Dressing applied to RIJ. No desaturation or respiratory distress noted. Bed in lowest position, call light within reach. Continue to plan of care.
[2020-09-17 04:00] VITALS: BP 135/70
[2020-09-17] MEDS: NovoLOG Insulin Flexpen SUBQ SCH ×4 (05:33→20:51)
[2020-09-17 05:34] LABS: HEMOGLOBIN 11.6 G/DL (14.2-18.0); MEAN CORPUSCULAR VOLUME 92 FL (80-99); PLATELET COUNT 262 K/UL (150-450); RED BLOOD COUNT 4.23 M/UL (4.70-6.10); RED CELL DISTRIBUTION WIDTH 15.5 % (11.6-14.8); WHITE BLOOD COUNT 14.5 K/UL (4.8-10.8)
[2020-09-17 06:00] LABS: ALANINE AMINOTRANSFERASE 24 U/L (12-78); ALBUMIN 2.6 G/DL (3.4-5.0); ALBUMIN/GLOBULIN RATIO 0.6 (1.0-2.7); ALKALINE PHOSPHATASE 101 U/L (46-116); ANION GAP 6 mmol/L (5-15); ASPARTATE AMINO TRANSFERASE 22 U/L (15-37); BILIRUBIN,TOTAL 0.5 MG/DL (0.2-1.0); BLOOD UREA NITROGEN 51 mg/dL (7-18); CALCIUM 9.5 MG/DL (8.5-10.1); CARBON DIOXIDE 30 MMOL/L (21-32); CHLORIDE 124 MMOL/L (98-107); CREATININE 1.4 MG/DL (0.55-1.30); POTASSIUM 3.7 MMOL/L (3.5-5.1); SODIUM 159 MMOL/L (136-145)
[2020-09-17] MEDS ORDERED: Cefepime 1gm/D5W 55ml IVPB SCH ×2 (06:00)
--- NOTE | 2020-09-17 06:20 | NUR ---
NURSE NOTES: Pt is sleeping o2 sat- 100%, no pain no facial grimacing noted. O2 sat-100%. Continue to plan of care.
--- NOTE | 2020-09-17 07:15 | NUR ---
NURSE HAND-OFF REPORT: Important Events on Shift: Pt is stable, 02 sat- 100% on NC at 2L,v VTAC 8 beats- Toluie made aware converted to SR with BBB Patient Status: Stable Diet: NPO- pending ST eval, pt on d5w Pending Orders: None Pending Results/Labs: none Pending MD notification:none Latest Vital Signs: Temperature 97.8 , Pulse 78 , B/P 135 /70 , Respiratory Rate 18 , O2 SAT 100 , NC- 3L, O2 Flow Rate 3.0 . Vital Sign Comment: WNL EKG Rhythm: SR w bbb Rhythm change?: N MD Notified?: -MD MARYAM Cody Response: Latest Meeks Fall Score: 70 Fall Risk: High Risk Safety Measures: Call light Within Reach, Bed Alarm Zone 2, Side Rails Side Rails x3, Bed position Low and Locked. Fall Precautions: Yellow Socks Yellow Gown Door Sign Patient Fall Education Report given to [Indu CombsRN].
--- NOTE | 2020-09-17 07:25 | NUR ---
NURSE NOTES: Received patient in bed. Awake, nonverbal, traces movement with his eyes. On 2 L NC. Right IJ, site intact infusing IVF as ordered. Bed low and locked, side rails up x2, bed alarm on, call light within reach - unable to return demonstration.
[2020-09-17 08:00] VITALS: BP 126/77
[2020-09-17] MEDS: Docusate 100mg cap ORAL SCH (08:53)
[2020-09-17] MEDS: dexAMETHasone 10mg/ml Inj IV SCH (08:53)
[2020-09-17] MEDS: Heparin 5000 units/ml inj SUBQ SCH ×2 (08:54→20:38)
[2020-09-17] MEDS: Lisinopril 2.5mg tab ORAL SCH (08:54)
[2020-09-17] MEDS: levETIRAcetam 500mg/5ml Liquid ORAL SCH ×2 (08:55→20:37)
--- NOTE | 2020-09-17 10:17 | NUR ---
Speech Pathology Note (Bedside Dysphagia Evaluation) Brief Note: Mr. Julien is a 64 year old male who is a resident of [facility] (SNF: Admission date 09/25/2018). His underlying comorbid includes Hemorrhagic CVA, Dysphagia, Anoxic Brain Injury, bilateral upper/lower contracture, Seizure disorder, Depressive Disorder, CAD, Dyslipidemia, SVT, GERD, and esophagitis. He was taken to [place] [facility] BIB EMS for hypoxemia and tachycardia in setting of recent diagnosis of COVID 19 positive. He was found to be leukocytosis 18k, elevated inflammatory marker, Hypernatremia 165, with elevated BUN/Creatine 68/2.0. AT ED, the cardiac enzyme and LFT were grossly unremarkable. TTE indicated LVEF 45~50%. He was admitted step down unit on 07/16/2021 for isolation, COVID 19 treatment/observation, and to treat leukocytosis, and dehydration c.w SANDEEP. Over last 36 hours, he was noted to be episode of seizure activity, an episode of 8 pause of VT, that currently managed medically. Today's labs were improving to WBC 14.5k, Na 159, BUN/Creatine: 51/1.4. His vital signs are stable. Findings of Bedside Evaluation: Mr. Julien was in 75 HOB position leaned to right upon entry. His saturation was 97 on room air (NC was misplaced). He appeared to be comfortable. He was able to state his name when I asked. he was unable to state where he was. He was able to follow simple verbal command (Open your mouth, stick you tongue out etc.). His oral cavity is noted to be mildly dry and erythema of mucosa membrane of palate and tongue. His voice was intact. There was several episodes of left upper extremity seizure/possible intentional tremor like activity was noted. A few episodes of fixed eye gaze is also noted during prolonged seizure activity. Given him PO with apple sauce, he tolerated without s.s of aspiration. Given him thin liquid, he appeared to aspiration with excessive strong cough after swallowing. Given him control amount of thick liquid he tolerated without coughing. Given him non-control amount of nectar thick liquid via straw, he coughed after swallow. Interpretation: 1. Oropharyngeal Dysphagia with aspiration risk, seizure precaution Plan: 1. Pureed and Honey thick liquid with aspiration precaution Speech/Dysphagia follow up early next week for status Ilya Jimenez
--- NOTE | 2020-09-17 10:57 | NUR ---
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
--- NOTE | 2020-09-17 11:03 | General Progress Note ---
Subjective ROS Limited/Unobtainable: Yes Allergies: Coded Allergies: No Known Allergies (Unverified , 09/15/20) Subjective care noted labs reviewed in ANU Objective Last 24 Hour Vital Signs Date Time Temp Pulse Resp B/P (MAP) Pulse Ox O2 Delivery O2 Flow Rate FiO2 09/17/20 09:00 60 09/17/20 08:54 126/77 09/17/20 08:53 61 126/77 09/17/20 08:00 73 09/17/20 08:00 Nasal Cannula 2.0 09/17/20 08:00 2.0 09/17/20 08:00 97.3 61 18 126/77 (93) 100 09/17/20 04:00 97.8 78 18 135/70 (91) 100 09/17/20 04:00 3.0 09/17/20 04:00 Nasal Cannula 3.0 09/17/20 04:00 78 09/17/20 00:00 97.7 83 20 123/74 (90) 100 09/17/20 00:00 78 09/17/20 00:00 Nasal Cannula 3.0 09/16/20 20:54 72 127/72 09/16/20 20:00 3.0 09/16/20 20:00 Nasal Cannula 3.0 09/16/20 20:00 97.5 89 20 120/72 (88) 98 09/16/20 20:00 93 09/16/20 17:16 Non-Rebreather 15.0 09/16/20 16:00 Non-Rebreather 15.0 09/16/20 16:00 2.0 09/16/20 16:00 93 09/16/20 16:00 97.5 88 20 152/90 (110) 100 09/16/20 12:00 Non-Rebreather 15.0 09/16/20 12:00 15.0 100 09/16/20 11:57 97.3 85 19 146/98 (114) 99 09/16/20 11:27 84 Intake and Output 09/16/20 09/17/20 19:00 07:00 Intake Total 825 ml 825 ml Output Total 400 ml 100 ml Balance 425 ml 725 ml Intake IV Total 825 ml 825 ml Output Urine Total 400 ml 100 ml # Voids 2 Laboratory Tests 09/16/20 11:52: POC Whole Blood Glucose [Pending] 09/17/20 04:00: White Blood Count 14.5H, Red Blood Count 4.23L, Hemoglobin 11.6L, Hematocrit 39.0L, Mean Corpuscular Volume 92, Mean Corpuscular Hemoglobin 27.4, Mean Corpuscular Hemoglobin Concent 29.7L, Red Cell Distribution Width 15.5H, Platelet Count 262, Mean Platelet Volume 10.3H, Neutrophils (%) (Auto) , Lymphocytes (%) (Auto) , Monocytes (%) (Auto) , Eosinophils (%) (Auto) , Basophils (%) (Auto) , Erythrocyte Sedimentation Rate 58H, Sodium Level 159H, Potassium Level 3.7, Chloride Level 124H, Carbon Dioxide Level 30, Anion Gap 6, Blood Urea Nitrogen 51H, Creatinine 1.4H, Estimat Glomerular Filtration Rate > 60, Glucose Level 135H, Calcium Level 9.5, Total Bilirubin 0.5, Aspartate Amino Transf (AST/SGOT) 22, Alanine Aminotransferase (ALT/SGPT) 24, Alkaline Phosphatase 101, Troponin I 0.033, C-Reactive Protein, Quantitative 4.4H, Pro-B-Type Natriuretic Peptide 595H, Total Protein 6.9, Albumin 2.6L, Globulin 4.3, Albumin/Globulin Ratio 0.6L, Thyroid Stimulating Hormone (TSH) 0.186L, Free Thyroxine 1.19 Height (Feet): 6 Height (Inches): 0.00 Weight (Pounds): 263 Objective deferred due to COVID Assessment/Plan Assessment/Plan: IMPRESSION: Sepsis pyuria, possible UTI, hypoxemic respiratory failure due to COVID-19 diabetes mellitus, acute renal failure, hypernatremia, obesity, dehydration. PLAN Decadron hypotonic fluids ID noted antibiotics oxygen as needed renal to see ID and cards noted DVT prophylaxis snf meds nutrition as able monitor labs and imaging impression, plan, and exam edited and reviewed in detail care discussed with Sonido Redmond MD Sep 17, 2020 11:03
[2020-09-17 11:15] VITALS: BP 122/80
--- NOTE | 2020-09-17 11:16 | Infectious Diseases Prog Note ---
Assessment/Plan Assessment/Plan IMPRESSION: Sepsis with tachycardia and leukocytosis, UTI,with Proteus Hypoxemic respiratory failure improving suspected COVID-19 Diabetes mellitus, Acute renal failure, Hypernatremia, Obesity, Dehydration. RECOMMENDATION: Continue with dexamethasone. Change cefepime to Rocephin We will f/u COVID19 PCR. Subjective ROS Limited/Unobtainable: Yes Constitutional: Denies: fever Allergies: Coded Allergies: No Known Allergies (Unverified , 09/15/20) Objective Last 24 Hour Vital Signs Date Time Temp Pulse Resp B/P (MAP) Pulse Ox O2 Delivery O2 Flow Rate FiO2 09/17/20 09:00 60 09/17/20 08:54 126/77 09/17/20 08:53 61 126/77 09/17/20 08:00 73 09/17/20 08:00 Nasal Cannula 2.0 09/17/20 08:00 2.0 09/17/20 08:00 97.3 61 18 126/77 (93) 100 09/17/20 04:00 97.8 78 18 135/70 (91) 100 09/17/20 04:00 3.0 09/17/20 04:00 Nasal Cannula 3.0 09/17/20 04:00 78 09/17/20 00:00 97.7 83 20 123/74 (90) 100 09/17/20 00:00 78 09/17/20 00:00 Nasal Cannula 3.0 09/16/20 20:54 72 127/72 09/16/20 20:00 3.0 09/16/20 20:00 Nasal Cannula 3.0 09/16/20 20:00 97.5 89 20 120/72 (88) 98 09/16/20 20:00 93 09/16/20 17:16 Non-Rebreather 15.0 09/16/20 16:00 Non-Rebreather 15.0 09/16/20 16:00 2.0 09/16/20 16:00 93 09/16/20 16:00 97.5 88 20 152/90 (110) 100 09/16/20 12:00 Non-Rebreather 15.0 09/16/20 12:00 15.0 100 09/16/20 11:57 97.3 85 19 146/98 (114) 99 09/16/20 11:27 84 Height (Feet): 6 Height (Inches): 0.00 Weight (Pounds): 263 HEENT: mucous membranes moist Respiratory/Chest: lungs clear, other - oxygen by nasal cannula Cardiovascular: normal rate, other - RIJ central line Abdomen: soft, non tender Extremities: other - contracted legs, dependent edema Neurologic/Psychiatric: aphasia, other - opens eyes Microbiology Date/Time Source Procedure Growth Status 09/15/20 20:08 Blood Blood Culture - Preliminary NO GROWTH AFTER 24 HOURS Resulted 09/15/20 20:08 Blood Blood Culture - Preliminary NO GROWTH AFTER 24 HOURS Resulted 09/15/20 18:20 Urine,Clean Catch Urine Culture - Final Proteus Mirabilis Complete 09/15/20 18:20 Nasopharynx SARS-CoV-2 RdRp Gene Assay - Final Complete 09/15/20 18:20 Blood Blood Culture - Preliminary NO GROWTH AFTER 24 HOURS Resulted 09/15/20 18:00 Blood Blood Culture - Preliminary NO GROWTH AFTER 24 HOURS Resulted Laboratory Tests Test 09/16/20 11:52 09/17/20 04:00 POC Whole Blood Glucose Pending White Blood Count 14.5 K/UL (4.8-10.8) H Red Blood Count 4.23 M/UL (4.70-6.10) L Hemoglobin 11.6 G/DL (14.2-18.0) L Hematocrit 39.0 % (42.0-52.0) L Mean Corpuscular Volume 92 FL (80-99) Mean Corpuscular Hemoglobin 27.4 PG (27.0-31.0) Mean Corpuscular Hemoglobin Concent 29.7 G/DL (32.0-36.0) L Red Cell Distribution Width 15.5 % (11.6-14.8) H Platelet Count 262 K/UL (150-450) Mean Platelet Volume 10.3 FL (6.5-10.1) H Neutrophils (%) (Auto) % (45.0-75.0) Lymphocytes (%) (Auto) % (20.0-45.0) Monocytes (%) (Auto) % (1.0-10.0) Eosinophils (%) (Auto) % (0.0-3.0) Basophils (%) (Auto) % (0.0-2.0) Erythrocyte Sedimentation Rate 58 MM/HR (0-20) H Sodium Level 159 MMOL/L (136-145) H Potassium Level 3.7 MMOL/L (3.5-5.1) Chloride Level 124 MMOL/L (98-107) H Carbon Dioxide Level 30 MMOL/L (21-32) Anion Gap 6 mmol/L (5-15) Blood Urea Nitrogen 51 mg/dL (7-18) H Creatinine 1.4 MG/DL (0.55-1.30) H Estimat Glomerular Filtration Rate > 60 mL/min (>60) Glucose Level 135 MG/DL (74-106) H Calcium Level 9.5 MG/DL (8.5-10.1) Total Bilirubin 0.5 MG/DL (0.2-1.0) Aspartate Amino Transf (AST/SGOT) 22 U/L (15-37) Alanine Aminotransferase (ALT/SGPT) 24 U/L (12-78) Alkaline Phosphatase 101 U/L (46-116) Troponin I 0.033 ng/mL (0.000-0.056) C-Reactive Protein, Quantitative 4.4 mg/dL (0.00-0.90) H Pro-B-Type Natriuretic Peptide 595 pg/mL (0-125) H Total Protein 6.9 G/DL (6.4-8.2) Albumin 2.6 G/DL (3.4-5.0) L Globulin 4.3 g/dL Albumin/Globulin Ratio 0.6 (1.0-2.7) L Thyroid Stimulating Hormone (TSH) 0.186 uiU/mL (0.358-3.740) Free Thyroxine 1.19 NG/DL (0.76-1.46) Current Medications Medications (Trade) Dose Ordered Sig/Ciro Route PRN Reason Start Time Stop Time Status Last Admin Dose Admin Acetaminophen (Tylenol) 650 mg Q4H PRN ORAL For Pain 09/16/20 02:15 10/16/20 02:14 Amlodipine Besylate (Norvasc) 5 mg DAILY ORAL 09/16/20 09:00 10/16/20 08:59 09/17/20 08:53 Barium Sulfate (Varibar Honey) 250 ml NOW PRN RAD 09/16/20 12:45 09/19/20 12:40 Barium Sulfate (Varibar [place]) 240 ml NOW PRN RAD 09/16/20 12:45 1/17/21 12:40 Barium Sulfate (Varibar Pudding) 230 ml NOW PRN RAD 09/16/20 12:45 09/19/20 12:40 Barium Sulfate (Varibar Thin Liquid powder) 148 gm NOW PRN RAD 09/16/20 12:45 09/19/20 12:40 Carvedilol (Coreg) 3.125 mg EVERY 12 HOURS ORAL 09/16/20 09:00 10/16/20 08:59 09/16/20 20:54 Cefepime HCl 1 gm/ Dextrose 55 ml @ 110 mls/hr Q24H IVPB 09/17/20 06:00 09/24/20 05:59 09/17/20 05:18 Chlorhexidine Gluconate (Aleyda-Hex 2%) 1 applic DAILY@2000 TOPIC 09/17/20 20:00 12/16/20 19:59 Clonidine HCl (Catapres Tab) 0.1 mg Q4H PRN ORAL sbp>170 09/16/20 09:15 12/15/20 09:14 Dexamethasone Sodium Phosphate (Decadron 10mg/ ml Inj) 6 mg DAILY IV 09/16/20 09:00 09/24/20 12:00 09/17/20 08:53 Dextrose 1,000 ml @ 75 mls/hr [id number] IV 09/16/20 00:00 10/16/20 00:00 09/17/20 02:53 Dextrose (Dextrose 50%) 25 ml Q30M PRN IV Hypoglycemia 09/16/20 00:00 12/15/20 00:00 Dextrose (Dextrose 50%) 50 ml Q30M PRN IV Hypoglycemia 09/16/20 00:00 12/15/20 00:00 Docusate Sodium (Colace) 100 mg DAILY ORAL 09/16/20 09:00 10/16/20 08:59 09/17/20 08:53 Guaifenesin (Robitussin) 100 mg Q4H PRN ORAL FOR COUGH 09/16/20 02:15 12/15/20 02:14 Heparin Sodium (Porcine) (Heparin 5000 units/ml) 5,000 units EVERY 12 HOURS SUBQ 09/16/20 09:00 10/31/20 08:59 09/17/20 08:54 Insulin Aspart (NovoLOG) BEFORE MEALS AND HS SUBQ 09/16/20 06:30 12/15/20 06:29 09/16/20 05:29 Levetiracetam (Keppra) 1,000 mg EVERY 12 HOURS ORAL 09/16/20 09:00 10/16/20 08:59 09/17/20 08:55 Lisinopril (ZestriL) 5 mg DAILY ORAL 09/16/20 09:00 10/16/20 08:59 09/17/20 08:54 Lorazepam (Ativan 2mg/ml 1ml) 1 mg NEEDED PRN IV For Seizures 09/16/20 04:15 09/23/20 04:14 Pantoprazole (Protonix) 40 mg DAILY ORAL 09/16/20 09:00 10/16/20 08:59 09/17/20 08:53 Héctor Sow MD Sep 17, 2020 11:16
[2020-09-17] MEDS: cefTRIAXone 1 GM in D5W 55 ML IVPB SCH (12:59)
--- NOTE | 2020-09-17 13:14 | NUR ---
NURSE NOTES: Wound dressing changed for Right buttocks.
[2020-09-17] MEDS ORDERED: Tubing IV Secondary IV ONE (13:41)
--- NOTE | 2020-09-17 14:59 | Cardiac Electrophysiology PN ---
Assessment/Plan Assessment/Plan 1. Tachycardia, due to respiratory failure currently on 100% non-rebreather face mask. Initial rapid COVID was negative, but the PCR was pending. The patient's white count was also high 18,000 and is already on IV antibiotic. 2. History of bradycardia due to respiratory failure. After oxygen was provided, the heart rate improved to 150s. No evidence of atrial fibrillation. 3. Bifascicular block with right bundle-branch block and left anterior fascicular block. 4. Status post hemorrhagic CVA and psych history, currently nonverbal. 5. Hypertension, on lisinopril 5 mg daily, Coreg 3.125 mg bid and amlodipine 5 mg daily. 6. Diabetes, on insulin. 7. Sepsis. Already started on IV antibiotics. Subjective Subjective Had 8 beats of NSVT. Passed swallow eval for puree diet. Objective Last 24 Hour Vital Signs Date Time Temp Pulse Resp B/P (MAP) Pulse Ox O2 Delivery O2 Flow Rate FiO2 09/17/20 12:00 2.0 09/17/20 12:00 Nasal Cannula 2.0 09/17/20 11:36 81 09/17/20 11:15 98.1 82 18 122/80 (94) 97 09/17/20 09:00 60 09/17/20 08:54 126/77 09/17/20 08:53 61 126/77 09/17/20 08:00 73 09/17/20 08:00 Nasal Cannula 2.0 09/17/20 08:00 2.0 09/17/20 08:00 97.3 61 18 126/77 (93) 100 09/17/20 04:00 97.8 78 18 135/70 (91) 100 09/17/20 04:00 3.0 09/17/20 04:00 Nasal Cannula 3.0 09/17/20 04:00 78 09/17/20 00:00 97.7 83 20 123/74 (90) 100 09/17/20 00:00 78 09/17/20 00:00 Nasal Cannula 3.0 09/16/20 20:54 72 127/72 09/16/20 20:00 3.0 09/16/20 20:00 Nasal Cannula 3.0 09/16/20 20:00 97.5 89 20 120/72 (88) 98 09/16/20 20:00 93 1/14/21 17:16 Non-Rebreather 15.0 09/16/20 16:00 Non-Rebreather 15.0 09/16/20 16:00 2.0 09/16/20 16:00 93 09/16/20 16:00 97.5 88 20 152/90 (110) 100 Intake and Output 09/16/20 09/17/20 19:00 07:00 Intake Total 825 ml 900 ml Output Total 400 ml 100 ml Balance 425 ml 800 ml Intake IV Total 825 ml 900 ml Output Urine Total 400 ml 100 ml # Voids 2 Laboratory Tests Test 09/17/20 04:00 White Blood Count 14.5 K/UL (4.8-10.8) H Red Blood Count 4.23 M/UL (4.70-6.10) L Hemoglobin 11.6 G/DL (14.2-18.0) L Hematocrit 39.0 % (42.0-52.0) L Mean Corpuscular Volume 92 FL (80-99) Mean Corpuscular Hemoglobin 27.4 PG (27.0-31.0) Mean Corpuscular Hemoglobin Concent 29.7 G/DL (32.0-36.0) L Red Cell Distribution Width 15.5 % (11.6-14.8) H Platelet Count 262 K/UL (150-450) Mean Platelet Volume 10.3 FL (6.5-10.1) H Neutrophils (%) (Auto) % (45.0-75.0) Lymphocytes (%) (Auto) % (20.0-45.0) Monocytes (%) (Auto) % (1.0-10.0) Eosinophils (%) (Auto) % (0.0-3.0) Basophils (%) (Auto) % (0.0-2.0) Erythrocyte Sedimentation Rate 58 MM/HR (0-20) H Sodium Level 159 MMOL/L (136-145) H Potassium Level 3.7 MMOL/L (3.5-5.1) Chloride Level 124 MMOL/L (98-107) H Carbon Dioxide Level 30 MMOL/L (21-32) Anion Gap 6 mmol/L (5-15) Blood Urea Nitrogen 51 mg/dL (7-18) H Creatinine 1.4 MG/DL (0.55-1.30) H Estimat Glomerular Filtration Rate > 60 mL/min (>60) Glucose Level 135 MG/DL (74-106) H Calcium Level 9.5 MG/DL (8.5-10.1) Total Bilirubin 0.5 MG/DL (0.2-1.0) Aspartate Amino Transf (AST/SGOT) 22 U/L (15-37) Alanine Aminotransferase (ALT/SGPT) 24 U/L (12-78) Alkaline Phosphatase 101 U/L (46-116) Troponin I 0.033 ng/mL (0.000-0.056) C-Reactive Protein, Quantitative 4.4 mg/dL (0.00-0.90) H Pro-B-Type Natriuretic Peptide 595 pg/mL (0-125) H Total Protein 6.9 G/DL (6.4-8.2) Albumin 2.6 G/DL (3.4-5.0) L Globulin 4.3 g/dL Albumin/Globulin Ratio 0.6 (1.0-2.7) L Thyroid Stimulating Hormone (TSH) 0.186 uiU/mL (0.358-3.740) Free Thyroxine 1.19 NG/DL (0.76-1.46) Microbiology Date/Time Source Procedure Growth Status 09/15/20 20:08 Blood Blood Culture - Preliminary NO GROWTH AFTER 24 HOURS Resulted 09/15/20 20:08 Blood Blood Culture - Preliminary NO GROWTH AFTER 24 HOURS Resulted 09/15/20 18:20 Urine,Clean Catch Urine Culture - Final Proteus Mirabilis Complete 09/15/20 18:20 Nasopharynx SARS-CoV-2 RdRp Gene Assay - Final Complete 09/15/20 18:20 Blood Blood Culture - Preliminary NO GROWTH AFTER 24 HOURS Resulted 09/15/20 18:00 Blood Blood Culture - Preliminary NO GROWTH AFTER 24 HOURS Resulted Objective HEAD AND NECK: Showed no JVD. LUNGS: Coarse rhonchi. CARDIOVASCULAR: Shows regular S1 and S2 with no gallop. ABDOMEN: Soft. EXTREMITIES: He has contractures. Catracho Lundy MD Sep 17, 2020 14:59
--- NOTE | 2020-09-17 15:30 | Consultation ---
DATE OF CONSULTATION: 09/17/2020 NEPHROLOGY CONSULTATION CONSULTING PHYSICIAN: Josue Braun MD. ATTENDING PHYSICIAN: Dr. Walker. REFERRING PHYSICIAN: Sonido Walker MD. REASON FOR CONSULTATION: Hypernatremia, elevated BUN and creatinine. HISTORY OF PRESENT ILLNESS: This is a 64-year-old male who was admitted by the attending physician from a longterm facility due to COVID-19 pneumonia. I am asked to see the patient for elevation of sodium, BUN, and creatinine. PAST MEDICAL HISTORY: 1. Type 2 insulin-dependent diabetes mellitus. 2. Anoxic encephalopathy due to hemorrhagic CVA. 3. Coronary artery disease. 4. Dyslipidemia. 5. Seizure disorder. MEDICATIONS: 1. IV cefepime. 2. IV Rocephin. 3. IV fluids D5W. 4. Tylenol. 5. Amlodipine. 6. Coreg. 7. Clonidine p.r.n. 8. Decadron daily. 9. Colace. 10. Robitussin p.r.n. 11. Subcutaneous heparin. 12. Insulin sliding scale. 13. Keppra. 14. Lisinopril. 15. Lorazepam p.r.n. 16. Protonix. ALLERGIES: No known drug allergies. FAMILY HISTORY: Unable to obtain due to mental status. SOCIAL HISTORY: Unable to obtain due to mental status. REVIEW OF SYSTEMS: Unable to obtain due to mental status. PHYSICAL EXAMINATION: GENERAL: This is an elderly male, who is in no acute distress. VITAL SIGNS: Blood pressure 122/80, pulse 82 and regular, respirations 20, and temperature 98.1, axillary. HEENT: The head is normocephalic and atraumatic. Pupils are equal, round, and reactive to light. NECK: Supple. Trachea midline. There was no lymphadenopathy or thyromegaly. LUNGS: Bilateral rhonchi. HEART: Regular rate and rhythm without rubs, murmurs, or gallops. ABDOMEN: Soft and nontender. Bowel sounds were active. EXTREMITIES: No clubbing, cyanosis, or edema. NEUROLOGICAL: He is obtunded. There were no gross focal findings. LABORATORY AND ANCILLARY DATA: Sodium 159, potassium 3.7, BUN 51, creatinine 1.4. BNP 595. D-dimer 4.89. INR 1.2. Urinalysis - 10 to 15 white blood cells, 2+ protein. CBC, white count 14,500, hematocrit 39, platelet count 262,000. IMAGING REPORT: Chest x-ray, right jugular central line. Early infiltrates. ASSESSMENT: 1. COVID-19 pneumonia. 2. Type 2 insulin-dependent diabetes mellitus. 3. Anoxic encephalopathy due to hemorrhagic CVA. 4. Coronary artery disease. 5. Dyslipidemia. 6. Seizure disorder. 7. Hypernatremia. 8. Prerenal azotemia. PLAN: 1. Continue hypotonic fluid rehydration. 2. Follow daily chemistry. Thank you, Dr. Walker, for letting me to participate in the care of this complex patient. Josue Braun M.D. DR: ELADIO JOB#: [id number] CC: NIKO
[2020-09-17 16:00] VITALS: BP 130/75
--- NOTE | 2020-09-17 16:44 | Surgery Progress Note ---
Surgery Progress Note Subjective Additional Comments no acute events lab noted imaging reviewed no n/v Objective Last 24 Hour Vital Signs Date Time Temp Pulse Resp B/P (MAP) Pulse Ox O2 Delivery O2 Flow Rate FiO2 09/17/20 16:00 98.0 93 17 130/75 (93) 98 09/17/20 12:00 2.0 09/17/20 12:00 Nasal Cannula 2.0 09/17/20 11:36 81 09/17/20 11:15 98.1 82 18 122/80 (94) 97 09/17/20 09:00 60 09/17/20 08:54 126/77 09/17/20 08:53 61 126/77 09/17/20 08:00 73 09/17/20 08:00 Nasal Cannula 2.0 09/17/20 08:00 2.0 09/17/20 08:00 97.3 61 18 126/77 (93) 100 09/17/20 04:00 97.8 78 18 135/70 (91) 100 09/17/20 04:00 3.0 09/17/20 04:00 Nasal Cannula 3.0 09/17/20 04:00 78 09/17/20 00:00 97.7 83 20 123/74 (90) 100 09/17/20 00:00 78 09/17/20 00:00 Nasal Cannula 3.0 09/16/20 20:54 72 127/72 09/16/20 20:00 3.0 09/16/20 20:00 Nasal Cannula 3.0 09/16/20 20:00 97.5 89 20 120/72 (88) 98 09/16/20 20:00 93 09/16/20 17:16 Non-Rebreather 15.0 I&O Intake and Output 09/16/20 09/17/20 19:00 07:00 Intake Total 825 ml 900 ml Output Total 400 ml 100 ml Balance 425 ml 800 ml Intake IV Total 825 ml 900 ml Output Urine Total 400 ml 100 ml # Voids 2 Dressing: saturated Cardiovascular: RSR Respiratory: decreased breath sounds Abdomen: soft, non-tender, present bowel sounds Extremities: no edema, no tenderness, no cyanosis Laboratory Tests Test 09/17/20 04:00 White Blood Count 14.5 K/UL (4.8-10.8) H Red Blood Count 4.23 M/UL (4.70-6.10) L Hemoglobin 11.6 G/DL (14.2-18.0) L Hematocrit 39.0 % (42.0-52.0) L Mean Corpuscular Volume 92 FL (80-99) Mean Corpuscular Hemoglobin 27.4 PG (27.0-31.0) Mean Corpuscular Hemoglobin Concent 29.7 G/DL (32.0-36.0) L Red Cell Distribution Width 15.5 % (11.6-14.8) H Platelet Count 262 K/UL (150-450) Mean Platelet Volume 10.3 FL (6.5-10.1) H Neutrophils (%) (Auto) % (45.0-75.0) Lymphocytes (%) (Auto) % (20.0-45.0) Monocytes (%) (Auto) % (1.0-10.0) Eosinophils (%) (Auto) % (0.0-3.0) Basophils (%) (Auto) % (0.0-2.0) Erythrocyte Sedimentation Rate 58 MM/HR (0-20) H Sodium Level 159 MMOL/L (136-145) H Potassium Level 3.7 MMOL/L (3.5-5.1) Chloride Level 124 MMOL/L (98-107) H Carbon Dioxide Level 30 MMOL/L (21-32) Anion Gap 6 mmol/L (5-15) Blood Urea Nitrogen 51 mg/dL (7-18) H Creatinine 1.4 MG/DL (0.55-1.30) H Estimat Glomerular Filtration Rate > 60 mL/min (>60) Glucose Level 135 MG/DL (74-106) H Calcium Level 9.5 MG/DL (8.5-10.1) Total Bilirubin 0.5 MG/DL (0.2-1.0) Aspartate Amino Transf (AST/SGOT) 22 U/L (15-37) Alanine Aminotransferase (ALT/SGPT) 24 U/L (12-78) Alkaline Phosphatase 101 U/L (46-116) Troponin I 0.033 ng/mL (0.000-0.056) C-Reactive Protein, Quantitative 4.4 mg/dL (0.00-0.90) H Pro-B-Type Natriuretic Peptide 595 pg/mL (0-125) H Total Protein 6.9 G/DL (6.4-8.2) Albumin 2.6 G/DL (3.4-5.0) L Globulin 4.3 g/dL Albumin/Globulin Ratio 0.6 (1.0-2.7) L Thyroid Stimulating Hormone (TSH) 0.186 uiU/mL (0.358-3.740) Free Thyroxine 1.19 NG/DL (0.76-1.46) Plan Problems: (1) Dehydration (2) CHF (congestive heart failure) (3) Hypernatremia (4) SANDEEP (acute kidney injury) (5) Hypoxia (6) Sepsis Assessment & Plan: 64-year-old male extensive medical history at baseline mental status without significant responsiveness alert unable to cooperate with exam presented from facility identified to have significant leukocytosis abnormal labs elevated LFTs with multiple skin concerns including deep tissue injury and opening near the buttock concerning for potential abscess. On evaluation this is more of a decubitus breakdown on the buttock right 1 cm by centimeter without drainage. It does not seem to be a prior abscess or current abscess. No I&D indicated at this time. Chest x-ray noted haziness currently Covid negative on initial examination potentially needs to be rechecked. No acute surgical intervention planned at this time. Okay for diet as tolerated via tube. Continue IV antibiotics per infectious disease. Respiratory as per pulmonology. Trend labs. Will follow with recommendations thank you for let me participate patient's care (7) UTI (urinary tract infection) (8) COVID-19 (9) Acute hypoxemic respiratory failure due to COVID-19 Jono Hernandez Sep 17, 2020 16:44
--- NOTE | 2020-09-17 19:00 | NUR ---
NURSE NOTES: Received report from Felix Combs. Pt is flat affect, but eyes poen spontaneously. pt on nasal cannula at 2LPM o2 sat- 98%. Pt on Regular pureed thick liquids. Pt VS stable, with episodes of [place] in the morning. Hook in lockstitch pocket setter SR. On padded side rails for seizure precaution. With RIJ patent and intact. No any pain or respiratory distress. Bed in lowest position, call light within reach. bed in locked. Continue to plan of care.
--- NOTE | 2020-09-17 19:22 | NUR ---
NURSE HAND-OFF REPORT: Important Events on Shift:[ST eval, new diet order, bradycardia] Patient Status: [FULL CODE] Diet: [puree with HTL] Pending Orders: [] Pending Results/Labs:[] Pending MD notification:[] Latest Vital Signs: Temperature 98.0 , Pulse 77 , B/P 130 /75 , Respiratory Rate 17 , O2 SAT 98 , Non-Rebreather, O2 Flow Rate 2.0 . Vital Sign Comment: [] EKG Rhythm: SR,BBB Rhythm change?: N Notified?: -MD MARYAM Cody Response: Latest Meeks Fall Score: 70 Fall Risk: High Risk Safety Measures: Call light Within Reach, Bed Alarm Zone 1, Side Rails Side Rails x3, Bed position Low and Locked. Fall Precautions: Yellow Socks Yellow Gown Door Sign Patient Fall Education Report given to [Thiago RN].
[2020-09-17 20:00] VITALS: BP 135/83
[2020-09-17] MEDS: Dyna-Hex 2% Top Sol 2oz TOPIC SCH (20:37)
[2020-09-18] VITALS: BP 134/77
--- NOTE | 2020-09-18 01:00 | NUR ---
NURSE NOTES: Cleaned pt,no bowel movement noted at this time. Sponge bath given. No any signs of respiratory distress, No pain or facial grimacing noted.
[2020-09-18 04:00] VITALS: BP 134/68
[2020-09-18] MEDS: NovoLOG Insulin Flexpen SUBQ SCH ×4 (05:32→20:57)
[2020-09-18 06:06] LABS: ANION GAP 7 mmol/L (5-15); BLOOD UREA NITROGEN 30 mg/dL (7-18); CALCIUM 8.1 MG/DL (8.5-10.1); CARBON DIOXIDE 26 MMOL/L (21-32); CHLORIDE 120 MMOL/L (98-107); POTASSIUM 2.9 MMOL/L (3.5-5.1); SODIUM 153 MMOL/L (136-145)
--- NOTE | 2020-09-18 06:22 | NUR ---
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 Awaiting for response. Will refer in AM.
--- NOTE | 2020-09-18 06:33 | NUR ---
NURSE NOTES: Noted Potassium- 2.9, Informed Dr. Cody but per Dr. Cody it's Dr. Walekr pt. Will confirmed with Dr. Walker. Waiting for response.
--- NOTE | 2020-09-18 07:05 | NUR ---
NURSE HAND-OFF REPORT: Important Events on Shift: Potassium 2.9- Na, 153- Dr. Walker aware. Potassium 40meq ordered. Patient Status: guarded Diet: puree honey thick Pending Orders: None Pending Results/Labs: None Pending MD notification: None Latest Vital Signs: Temperature 97.0 , Pulse 65 , B/P 134 /68 , Respiratory Rate 18 , O2 SAT 100 , Non-Rebreather, O2 Flow Rate 2.0 . Vital Sign Comment: WNL EKG Rhythm: SR,BBB Rhythm change?: N Notified?: -MD MARYAM Cdoy Response: Latest Meeks Fall Score: 70 Fall Risk: High Risk Safety Measures: Call light Within Reach, Bed Alarm Zone 1, Side Rails Side Rails x3, Bed position Low and Locked. Fall Precautions: Yellow Socks Yellow Gown Door Sign Patient Fall Education Report given to [ROBERTO Matthews].
[2020-09-18 08:00] VITALS: BP 125/68
[2020-09-18] MEDS: dexAMETHasone 10mg/ml Inj IV SCH (09:07)
[2020-09-18] MEDS: Docusate 100mg cap ORAL SCH (09:07)
[2020-09-18] MEDS: Lisinopril 2.5mg tab ORAL SCH (09:07)
[2020-09-18] MEDS: levETIRAcetam 500mg/5ml Liquid ORAL SCH ×2 (09:07→20:39)
[2020-09-18] MEDS: Heparin 5000 units/ml inj SUBQ SCH ×2 (09:15→20:40)
[2020-09-18] MEDS ORDERED: NS 275ml ONE (10:02)
[2020-09-18 12:00] VITALS: BP 123/73
[2020-09-18] MEDS: cefTRIAXone 1 GM in D5W 55 ML IVPB SCH (12:00)
--- NOTE | 2020-09-18 12:34 | Nephrology Progress Note ---
Assessment/Plan Plan Hypernatremia -resolving with hypotoniv IVF. Hypokelemia - correct. Subjective Subjective Confused Objective Objective Last 24 Hour Vital Signs Date Time Temp Pulse Resp B/P (MAP) Pulse Ox O2 Delivery O2 Flow Rate FiO2 09/18/20 09:07 125/68 09/18/20 09:07 87 125/68 09/18/20 09:07 87 125/68 09/18/20 08:39 87 09/18/20 08:33 2.0 09/18/20 08:25 Nasal Cannula 2.0 09/18/20 08:00 97.3 64 20 125/68 (87) 100 09/18/20 04:00 Nasal Cannula 2.0 09/18/20 04:00 65 09/18/20 04:00 97.0 74 18 134/68 (90) 100 09/18/20 04:00 2.0 09/18/20 00:00 71 09/18/20 00:00 Nasal Cannula 2.0 09/18/20 00:00 2.0 09/18/20 00:00 98.4 73 19 134/77 (96) 99 09/17/20 20:38 78 135/83 09/17/20 20:00 2.0 09/17/20 20:00 98.6 80 20 135/83 (100) 96 09/17/20 20:00 79 09/17/20 20:00 Nasal Cannula 2.0 09/17/20 16:00 98.0 93 17 130/75 (93) 98 09/17/20 16:00 2.0 09/17/20 16:00 77 09/17/20 16:00 Nasal Cannula 2.0 Intake and Output 09/17/20 09/18/20 19:00 07:00 Intake Total 925 ml 1020 ml Output Total 600 ml 600 ml Balance 325 ml 420 ml Intake Oral 100 ml 120 ml IV Total 825 ml 900 ml Output Urine Total 600 ml 600 ml Laboratory Tests 09/18/20 04:00: Sodium Level 153H, Potassium Level 2.9L, Chloride Level 120H, Carbon Dioxide Level 26, Anion Gap 7, Blood Urea Nitrogen 30H, Creatinine 1.0, Estimat Glomerular Filtration Rate > 60, Glucose Level 120H, Calcium Level 8.1L Height (Feet): 6 Height (Inches): 0.00 Weight (Pounds): 263 Objective CV RR Lungs CTA Abd SNT. BS+ E + edema Josue Braun MD Sep 18, 2020 12:34
--- NOTE | 2020-09-18 14:04 | Infectious Diseases Prog Note ---
Assessment/Plan Assessment/Plan IMPRESSION: Sepsis with tachycardia and leukocytosis, UTI,with Proteus Hypoxemic respiratory failure improving suspected COVID-19 Diabetes mellitus, Acute renal failure, Hypernatremia, Obesity, Dehydration. RECOMMENDATION: Continue with dexamethasone. Continue Rocephin We will f/u COVID19 PCR. Subjective ROS Limited/Unobtainable: Yes Constitutional: Denies: fever Allergies: Coded Allergies: No Known Allergies (Unverified , 09/15/20) Objective Last 24 Hour Vital Signs Date Time Temp Pulse Resp B/P (MAP) Pulse Ox O2 Delivery O2 Flow Rate FiO2 09/18/20 12:32 Nasal Cannula 2.0 09/18/20 12:00 69 09/18/20 12:00 97.0 89 23 123/73 (90) 98 09/18/20 09:07 125/68 09/18/20 09:07 87 125/68 09/18/20 09:07 87 125/68 09/18/20 08:39 87 09/18/20 08:33 2.0 09/18/20 08:25 Nasal Cannula 2.0 09/18/20 08:00 97.3 64 20 125/68 (87) 100 09/18/20 04:00 Nasal Cannula 2.0 09/18/20 04:00 65 09/18/20 04:00 97.0 74 18 134/68 (90) 100 09/18/20 04:00 2.0 09/18/20 00:00 71 09/18/20 00:00 Nasal Cannula 2.0 09/18/20 00:00 2.0 09/18/20 00:00 98.4 73 19 134/77 (96) 99 09/17/20 20:38 78 135/83 09/17/20 20:00 2.0 09/17/20 20:00 98.6 80 20 135/83 (100) 96 09/17/20 20:00 79 09/17/20 20:00 Nasal Cannula 2.0 09/17/20 16:00 98.0 93 17 130/75 (93) 98 09/17/20 16:00 2.0 09/17/20 16:00 77 09/17/20 16:00 Nasal Cannula 2.0 Height (Feet): 6 Height (Inches): 0.00 Weight (Pounds): 263 HEENT: mucous membranes moist Respiratory/Chest: lungs clear, other - O2 by nasal cannula 2 l/min Cardiovascular: normal rate, other - RIJ line Abdomen: soft, non tender Extremities: other - edema Neurologic/Psychiatric: other - sleeping Microbiology Date/Time Source Procedure Growth Status 09/15/20 21:47 Rectum - Final NO CARBAPENEM-RESISTANT ENTEROBACTERI... Complete 09/15/20 21:47 Rectum VRE Culture - Final Enterococcus Faecalis - Vre Complete 09/15/20 21:47 Nasal Nares MRSA Culture - Final Staphylococcus Aureus - Mrsa Complete 09/15/20 20:08 Blood Blood Culture - Preliminary NO GROWTH AFTER 48 HOURS Resulted 09/15/20 20:08 Blood Blood Culture - Preliminary NO GROWTH AFTER 48 HOURS Resulted 09/15/20 18:20 Urine,Clean Catch Urine Culture - Final Proteus Mirabilis Complete 09/15/20 18:20 Nasopharynx SARS-CoV-2 RdRp Gene Assay - Final Complete 09/15/20 18:20 Blood Blood Culture - Preliminary NO GROWTH AFTER 48 HOURS Resulted 09/15/20 18:00 Blood Blood Culture - Preliminary NO GROWTH AFTER 48 HOURS Resulted Laboratory Tests Test 09/18/20 04:00 Sodium Level 153 MMOL/L (136-145) H Potassium Level 2.9 MMOL/L (3.5-5.1) L Chloride Level 120 MMOL/L (98-107) H Carbon Dioxide Level 26 MMOL/L (21-32) Anion Gap 7 mmol/L (5-15) Blood Urea Nitrogen 30 mg/dL (7-18) H Creatinine 1.0 MG/DL (0.55-1.30) Estimat Glomerular Filtration Rate > 60 mL/min (>60) Glucose Level 120 MG/DL (74-106) H Calcium Level 8.1 MG/DL (8.5-10.1) L Current Medications Medications (Trade) Dose Ordered Sig/Ciro Route PRN Reason Start Time Stop Time Status Last Admin Dose Admin Acetaminophen (Tylenol) 650 mg Q4H PRN ORAL For Pain 09/16/20 02:15 10/16/20 02:14 Amlodipine Besylate (Norvasc) 5 mg DAILY ORAL 09/16/20 09:00 10/16/20 08:59 09/18/20 09:07 Barium Sulfate (Varibar Honey) 250 ml NOW PRN MC RAD 09/16/20 12:45 09/19/20 12:40 Barium Sulfate (Varibar [place]) 240 ml NOW PRN MC RAD 09/16/20 12:45 09/19/20 12:40 Barium Sulfate (Varibar Pudding) 230 ml NOW PRN MC RAD 09/16/20 12:45 09/19/20 12:40 Barium Sulfate (Varibar Thin Liquid powder) 148 gm NOW PRN MC RAD 09/16/20 12:45 09/19/20 12:40 Carvedilol (Coreg) 3.125 mg EVERY 12 HOURS ORAL 09/16/20 09:00 10/16/20 08:59 09/18/20 09:07 Ceftriaxone Sodium 1 gm/ Dextrose 55 ml @ 110 mls/hr Q24H IVPB 09/17/20 12:00 09/24/20 11:59 09/18/20 12:00 Chlorhexidine Gluconate (Aleyda-Hex 2%) 1 applic DAILY@2000 TOPIC 09/17/20 20:00 12/16/20 19:59 09/17/20 20:37 Clonidine HCl (Catapres Tab) 0.1 mg Q4H PRN ORAL sbp>170 09/16/20 09:15 12/15/20 09:14 Dexamethasone Sodium Phosphate (Decadron 10mg/ ml Inj) 6 mg DAILY IV 09/16/20 09:00 09/24/20 12:00 09/18/20 09:07 Dextrose 1,000 ml @ 75 mls/hr [id number] IV 09/16/20 00:00 10/16/20 00:00 09/18/20 05:25 Dextrose (Dextrose 50%) 25 ml Q30M PRN IV Hypoglycemia 09/16/20 00:00 12/15/20 00:00 Dextrose (Dextrose 50%) 50 ml Q30M PRN IV Hypoglycemia 09/16/20 00:00 12/15/20 00:00 Docusate Sodium (Colace) 100 mg DAILY ORAL 09/16/20 09:00 10/16/20 08:59 09/18/20 09:07 Guaifenesin (Robitussin) 100 mg Q4H PRN ORAL FOR COUGH 09/16/20 02:15 12/15/20 02:14 Heparin Sodium (Porcine) (Heparin 5000 units/ml) 5,000 units EVERY 12 HOURS SUBQ 09/16/20 09:00 10/31/20 08:59 09/18/20 09:15 Insulin Aspart (NovoLOG) BEFORE MEALS AND HS SUBQ 09/16/20 06:30 12/15/20 06:29 09/17/20 11:14 Levetiracetam (Keppra) 1,000 mg EVERY 12 HOURS ORAL 09/16/20 09:00 10/16/20 08:59 09/18/20 09:07 Lisinopril (ZestriL) 5 mg DAILY ORAL 09/16/20 09:00 10/16/20 08:59 09/18/20 09:07 Lorazepam (Ativan 2mg/ml 1ml) 1 mg NEEDED PRN IV For Seizures 09/16/20 04:15 09/23/20 04:14 Pantoprazole (Protonix) 40 mg DAILY ORAL 09/16/20 09:00 10/16/20 08:59 09/18/20 09:07 Héctor Sow MD Sep 18, 2020 14:04
--- NOTE | 2020-09-18 15:31 | General Progress Note ---
Subjective ROS Limited/Unobtainable: Yes Allergies: Coded Allergies: No Known Allergies (Unverified , 09/15/20) Subjective care noted labs reviewed in ANU oxygen needs improved Objective Last 24 Hour Vital Signs Date Time Temp Pulse Resp B/P (MAP) Pulse Ox O2 Delivery O2 Flow Rate FiO2 09/18/20 12:32 Nasal Cannula 2.0 09/18/20 12:00 69 09/18/20 12:00 97.0 89 23 123/73 (90) 98 09/18/20 09:07 125/68 09/18/20 09:07 87 125/68 09/18/20 09:07 87 125/68 09/18/20 08:39 87 09/18/20 08:33 2.0 09/18/20 08:25 Nasal Cannula 2.0 09/18/20 08:00 97.3 64 20 125/68 (87) 100 09/18/20 04:00 Nasal Cannula 2.0 09/18/20 04:00 65 09/18/20 04:00 97.0 74 18 134/68 (90) 100 09/18/20 04:00 2.0 09/18/20 00:00 71 09/18/20 00:00 Nasal Cannula 2.0 09/18/20 00:00 2.0 09/18/20 00:00 98.4 73 19 134/77 (96) 99 09/17/20 20:38 78 135/83 09/17/20 20:00 2.0 09/17/20 20:00 98.6 80 20 135/83 (100) 96 09/17/20 20:00 79 09/17/20 20:00 Nasal Cannula 2.0 09/17/20 16:00 98.0 93 17 130/75 (93) 98 09/17/20 16:00 2.0 09/17/20 16:00 77 09/17/20 16:00 Nasal Cannula 2.0 Intake and Output 09/17/20 09/18/20 19:00 07:00 Intake Total 925 ml 1020 ml Output Total 600 ml 600 ml Balance 325 ml 420 ml Intake Oral 100 ml 120 ml IV Total 825 ml 900 ml Output Urine Total 600 ml 600 ml Laboratory Tests 09/18/20 04:00: Sodium Level 153H, Potassium Level 2.9L, Chloride Level 120H, Carbon Dioxide Level 26, Anion Gap 7, Blood Urea Nitrogen 30H, Creatinine 1.0, Estimat Glomerular Filtration Rate > 60, Glucose Level 120H, Calcium Level 8.1L Height (Feet): 6 Height (Inches): 0.00 Weight (Pounds): 263 Objective deferred due to COVID Assessment/Plan Assessment/Plan: IMPRESSION: Sepsis pyuria, possible UTI, hypoxemic respiratory failure due to COVID-19 diabetes mellitus, acute renal failure, hypernatremia, obesity, dehydration. PLAN Decadron per ID hypotonic fluids still needed ID noted antibiotics oxygen as needed renal noted ID and cards noted DVT prophylaxis snf meds nutrition as able monitor labs and imaging ok to tele impression, plan, and exam edited and reviewed in detail care discussed with Sonido Redmond MD Sep 18, 2020 15:31
[2020-09-18 16:00] VITALS: BP 131/69
--- NOTE | 2020-09-18 16:38 | Cardiac Electrophysiology PN ---
Assessment/Plan Assessment/Plan 1. S/p sinus tachycardia, due to sepsis and respiratory failure Initial rapid COVID was negative, but the PCR was pending. The patient's white count was also high 18,000 and is already on IV antibiotic. 2. Bradycardia . DC Coreg 3. Bifascicular block with right bundle-branch block and left anterior fascicular block. 4. Status post hemorrhagic CVA and psych history, currently nonverbal. 5. Hypertension, on lisinopril 5 mg daily, Coreg 3.125 mg bid and amlodipine 5 mg daily. DC Coreg 6. Diabetes, on insulin. 7. Sepsis. Already started on IV antibiotics. Subjective Subjective Had 8 beats of NSVT. Passed swallow eval for puree diet.O2 decreased to 2 liter NC. At times gets [place] in 40s but mostly when sleeping Objective Last 24 Hour Vital Signs Date Time Temp Pulse Resp B/P (MAP) Pulse Ox O2 Delivery O2 Flow Rate FiO2 09/18/20 15:58 69 09/18/20 15:29 Nasal Cannula 2.0 09/18/20 12:32 Nasal Cannula 2.0 09/18/20 12:00 69 09/18/20 12:00 97.0 89 23 123/73 (90) 98 09/18/20 09:07 125/68 09/18/20 09:07 87 125/68 09/18/20 09:07 87 125/68 09/18/20 08:39 87 09/18/20 08:33 2.0 09/18/20 08:25 Nasal Cannula 2.0 09/18/20 08:00 97.3 64 20 125/68 (87) 100 09/18/20 04:00 Nasal Cannula 2.0 09/18/20 04:00 65 09/18/20 04:00 97.0 74 18 134/68 (90) 100 09/18/20 04:00 2.0 09/18/20 00:00 71 09/18/20 00:00 Nasal Cannula 2.0 09/18/20 00:00 2.0 09/18/20 00:00 98.4 73 19 134/77 (96) 99 09/17/20 20:38 78 135/83 09/17/20 20:00 2.0 09/17/20 20:00 98.6 80 20 135/83 (100) 96 09/17/20 20:00 79 09/17/20 20:00 Nasal Cannula 2.0 Intake and Output 09/17/20 09/18/20 19:00 07:00 Intake Total 925 ml 1020 ml Output Total 600 ml 600 ml Balance 325 ml 420 ml Intake Oral 100 ml 120 ml IV Total 825 ml 900 ml Output Urine Total 600 ml 600 ml Laboratory Tests Test 09/18/20 04:00 Sodium Level 153 MMOL/L (136-145) H Potassium Level 2.9 MMOL/L (3.5-5.1) L Chloride Level 120 MMOL/L (98-107) H Carbon Dioxide Level 26 MMOL/L (21-32) Anion Gap 7 mmol/L (5-15) Blood Urea Nitrogen 30 mg/dL (7-18) H Creatinine 1.0 MG/DL (0.55-1.30) Estimat Glomerular Filtration Rate > 60 mL/min (>60) Glucose Level 120 MG/DL (74-106) H Calcium Level 8.1 MG/DL (8.5-10.1) L Microbiology Date/Time Source Procedure Growth Status 09/15/20 21:47 Rectum - Final NO CARBAPENEM-RESISTANT ENTEROBACTERI... Complete 09/15/20 21:47 Rectum VRE Culture - Final Enterococcus Faecalis - Vre Complete 09/15/20 21:47 Nasal Nares MRSA Culture - Final Staphylococcus Aureus - Mrsa Complete 09/15/20 20:08 Blood Blood Culture - Preliminary NO GROWTH AFTER 48 HOURS Resulted 09/15/20 20:08 Blood Blood Culture - Preliminary NO GROWTH AFTER 48 HOURS Resulted 09/15/20 18:20 Urine,Clean Catch Urine Culture - Final Proteus Mirabilis Complete 09/15/20 18:20 Nasopharynx SARS-CoV-2 RdRp Gene Assay - Final Complete 09/15/20 18:20 Blood Blood Culture - Preliminary NO GROWTH AFTER 48 HOURS Resulted 09/15/20 18:00 Blood Blood Culture - Preliminary NO GROWTH AFTER 48 HOURS Resulted Objective HEAD AND NECK: Showed no JVD. LUNGS: Coarse rhonchi. CARDIOVASCULAR: Shows regular S1 and S2 with no gallop. ABDOMEN: Soft. EXTREMITIES: He has contractures. Catracho Lundy MD Sep 18, 2020 16:38
--- NOTE | 2020-09-18 19:22 | NUR ---
NURSE NOTES: Received report from ROBERTO Matthews. Pt is asleep, arousable to shaking, non-verbal, obtunded. No signs of distress noted. SR with BBB on recreation instructor. SpO2 96% on 2L NC. Condom cath intact, draining well to gravity. R FA 20g intact, asymptomatic. R IJ TLC intact and asymptomatic. Skin issues noted. Fall, aspiration, and seizure precautions noted and reinforced. HOB elevated, call light within reach, side rails x3 and padded, bed alarmed, locked, and in lowest position. Will continue plan of care. Will continue to monitor.
[2020-09-18 19:48] VITALS: BP 110/69
[2020-09-18] MEDS: Dyna-Hex 2% Top Sol 2oz TOPIC SCH (20:39)
--- NOTE | 2020-09-18 21:12 | NUR ---
NURSE NOTES: Administered PM meds. Pt tolerated PO liquid Keppra well when mixed with thickened liquid. Pt followed commands when asked to open mouth, but otherwise non-verbal and lethargic. Turned pt, provided oral care, and changed central line dressing. Will continue plan of care.
[2020-09-19] VITALS: BP 119/67
--- NOTE | 2020-09-19 02:09 | NUR ---
NURSE NOTES: Pt is stable at this time. No signs of acute distress or pain. Vital signs stable. Will continue to monitor.
[2020-09-19 04:00] VITALS: BP 132/74
--- NOTE | 2020-09-19 04:46 | NUR ---
NURSE NOTES: Cleaned and turned pt, changed linens and gown. Pictures of wounds taken. Procedure tolerated well. All vitals stable at this time with no signs of distress or pain. Will continue to monitor. Will continue plan of care.
[2020-09-19] MEDS: NovoLOG Insulin Flexpen SUBQ SCH ×4 (06:28→21:00)
--- NOTE | 2020-09-19 07:15 | NUR ---
NURSE HAND-OFF REPORT: Important Events on Shift:[No acute events] Patient Status: [Stable] Diet: [regular pureed honey thick liquid] Pending Orders: [transfer to tele] Pending Results/Labs:[NA] Pending MD notification:[NA] Latest Vital Signs: Temperature 97.5 , Pulse 68 , B/P 132 /74 , Respiratory Rate 16 , O2 SAT 100 , Non-Rebreather, O2 Flow Rate 2.0 . Vital Sign Comment: [Stable] EKG Rhythm: SR,BBB Rhythm change?: N Notified?: -MD MARYAM Cody Response: Latest Meeks Fall Score: 50 Fall Risk: High Risk Safety Measures: Call light Within Reach, Bed Alarm Zone 1, Side Rails Side Rails x3, Bed position Low and Locked. Fall Precautions: Yellow Socks Yellow Gown Door Sign Patient Fall Education Report given to [ROBERTO Sorto].
--- NOTE | 2020-09-19 07:30 | NUR ---
NURSE NOTES: Received report from ROBERTO Ely. The patient is resting on the bed without acute distress or shortness of breath. The patient has flat affect, able to follow command, but non-verbal. SB to SR w/ BBB w/ HR of 50-70s on the engine monitor. The patient is on 2L NC and the patient is tolerating well. The patient is regular diet w/ puree and moist. The patient is on condom cath that is intact and patent and draining by gravity. Skin issue noted and dressing intact. The patient has R FA 20G PIV and R IJ TLC that are intact and patent and running D5W @ 75mL/hr. The patient's bed in the lowest position, call light in reach, and fall, aspiration, and seizure precautions reinforced. IV sites intact and patent. Will follow up the lab and order. Will closely monitor the patient. Will continue plan of care.
[2020-09-19 07:44] LABS: ANION GAP 6 mmol/L (5-15); BLOOD UREA NITROGEN 24 mg/dL (7-18); CALCIUM 9.3 MG/DL (8.5-10.1); CARBON DIOXIDE 29 MMOL/L (21-32); CHLORIDE 110 MMOL/L (98-107); CREATININE 1.1 MG/DL (0.55-1.30); SODIUM 145 MMOL/L (136-145)
[2020-09-19 08:00] VITALS: BP 122/79
--- NOTE | 2020-09-19 08:00 | NUR ---
NURSE NOTES: Dr. Sow was notified positive blood culture of gram positive cocci in cluster one out of four bottles. Dr. Sow ordered [facility] pharmacy to dose. Will closely monitor the patient. Will continue plan of care.
--- NOTE | 2020-09-19 08:00 | NUR ---
NURSE NOTES: Morning assessment done. Morning vital signs taken. The patient is stable at this time. Will closely monitor the patient. Will continue plan of care.
[2020-09-19] MEDS: levETIRAcetam 500mg/5ml Liquid ORAL SCH ×2 (08:12→20:43)
[2020-09-19] MEDS: dexAMETHasone 10mg/ml Inj IV SCH (08:12)
[2020-09-19] MEDS: Docusate 100mg cap ORAL SCH (08:12)
[2020-09-19] MEDS: Lisinopril 2.5mg tab ORAL SCH (08:13)
[2020-09-19] MEDS: Heparin 5000 units/ml inj SUBQ SCH ×2 (08:13→20:46)
[2020-09-19] MEDS ORDERED: Vancomycin 1750mg/D5W 550ml IVPB ONE ×2 (09:00)
--- NOTE | 2020-09-19 09:00 | NUR ---
NURSE NOTES: Dr. Walker was notified regarding abnormal lab including K 3.0. Dr. Walker ordered KCL 10mEq x3 total of 30mEq. Will administer as ordered. Will closely monitor the patient. Will continue plan of care.
--- NOTE | 2020-09-19 10:00 | NUR ---
NURSE NOTES: Medications administered per order. The patient tolerated well. Heparin on hold since no new CBC result available and Hgb dropped to 11.6 on the last check. Will closely monitor the patient. Will continue plan of care.
[2020-09-19 10:20] LABS: BASOPHILS % (AUTO) 0.7 % (0.0-2.0); HEMATOCRIT 45.2 % (42.0-52.0); HEMOGLOBIN 13.6 G/DL (14.2-18.0); LYMPHOCYTES % (AUTO) 16.8 % (20.0-45.0); MEAN CORPUSCULAR VOLUME 89 FL (80-99); MONOCYTES % (AUTO) 3.4 % (1.0-10.0); NEUTROPHILS % (AUTO) 79.2 % (45.0-75.0); PLATELET COUNT 167 K/UL (150-450); RED BLOOD COUNT 5.11 M/UL (4.70-6.10); RED CELL DISTRIBUTION WIDTH 14.4 % (11.6-14.8); WHITE BLOOD COUNT 11.2 K/UL (4.8-10.8)
[2020-09-19] MEDS: cefTRIAXone 1 GM in D5W 55 ML IVPB SCH (11:43)
[2020-09-19 12:00] VITALS: BP 128/79
--- NOTE | 2020-09-19 12:00 | NUR ---
NURSE NOTES: BS 215 noted. Novolog administered per protocol. Will closely monitor the patient. Will continue plan of care.
--- NOTE | 2020-09-19 13:31 | General Progress Note ---
Subjective ROS Limited/Unobtainable: Yes Allergies: Coded Allergies: No Known Allergies (Unverified , 09/15/20) Subjective care noted labs reviewed in ANU oxygen needs improved Objective Last 24 Hour Vital Signs Date Time Temp Pulse Resp B/P (MAP) Pulse Ox O2 Delivery O2 Flow Rate FiO2 09/19/20 12:00 97.2 78 16 128/79 (95) 100 09/19/20 12:00 72 09/19/20 12:00 Nasal Cannula 2.0 09/19/20 08:13 122/79 09/19/20 08:13 63 122/79 09/19/20 08:00 97.1 58 16 122/79 (93) 100 09/19/20 08:00 61 09/19/20 08:00 Nasal Cannula 2.0 09/19/20 04:00 97.5 71 16 132/74 (93) 100 09/19/20 04:00 68 09/19/20 04:00 Nasal Cannula 2.0 09/19/20 00:00 Nasal Cannula 2.0 09/19/20 00:00 67 09/19/20 00:00 97.7 71 18 119/67 (84) 99 09/18/20 20:00 80 09/18/20 20:00 Nasal Cannula 2.0 09/18/20 19:48 96.8 76 20 110/69 (83) 100 09/18/20 16:00 97.0 87 22 131/69 (89) 100 09/18/20 15:58 69 09/18/20 15:29 Nasal Cannula 2.0 Intake and Output 09/18/20 09/19/20 19:00 07:00 Intake Total 195 ml 855 ml Output Total 750 ml 400 ml Balance -555 ml 455 ml Intake Oral 120 ml 30 ml IV Total 75 ml 825 ml Output Urine Total 750 ml 400 ml Laboratory Tests 09/18/20 16:37: POC Whole Blood Glucose 163H 09/18/20 20:45: POC Whole Blood Glucose 151H 09/19/20 04:00: Sodium Level 145, Potassium Level 3.0L, Chloride Level 110H, Carbon Dioxide Level 29, Anion Gap 6, Blood Urea Nitrogen 24H, Creatinine 1.1, Estimat Glomerular Filtration Rate > 60, Glucose Level 102, Calcium Level 9.3, Magnesium Level 2.4 09/19/20 05:24: POC Whole Blood Glucose 124H 09/19/20 07:36: POC Whole Blood Glucose 125H 09/19/20 09:50: White Blood Count 11.2H, Red Blood Count 5.11, Hemoglobin 13.6L, Hematocrit 45.2, Mean Corpuscular Volume 89, Mean Corpuscular Hemoglobin 26.7L, Mean Corpuscular Hemoglobin Concent 30.1L, Red Cell Distribution Width 14.4, Platelet Count 167, Mean Platelet Volume 10.9H, Neutrophils (%) (Auto) 79.2H, Lymphocytes (%) (Auto) 16.8L, Monocytes (%) (Auto) 3.4, Eosinophils (%) (Auto) 0.0, Basophils (%) (Auto) 0.7 09/19/20 10:40: POC Whole Blood Glucose 215H Height (Feet): 6 Height (Inches): 0.00 Weight (Pounds): 263 Objective deferred due to COVID Assessment/Plan Assessment/Plan: IMPRESSION: Sepsis pyuria, possible UTI, hypoxemic respiratory failure due to COVID-19 diabetes mellitus, acute renal failure, hypernatremia, obesity, dehydration. PLAN Decadron per ID hypotonic fluids and repeat lytes ID noted antibiotics oxygen as needed renal noted ID and cards noted DVT prophylaxis snf meds nutrition as able monitor labs and imaging dc planning impression, plan, and exam edited and reviewed in detail care discussed with Sonido Redmond MD Sep 19, 2020 13:31
--- NOTE | 2020-09-19 13:43 | Surgery Progress Note ---
Surgery Progress Note Subjective Additional Comments no acute events Objective Last 24 Hour Vital Signs Date Time Temp Pulse Resp B/P (MAP) Pulse Ox O2 Delivery O2 Flow Rate FiO2 09/19/20 12:00 97.2 78 16 128/79 (95) 100 09/19/20 12:00 72 09/19/20 12:00 Nasal Cannula 2.0 09/19/20 08:13 122/79 09/19/20 08:13 63 122/79 09/19/20 08:00 97.1 58 16 122/79 (93) 100 09/19/20 08:00 61 09/19/20 08:00 Nasal Cannula 2.0 09/19/20 04:00 97.5 71 16 132/74 (93) 100 09/19/20 04:00 68 09/19/20 04:00 Nasal Cannula 2.0 09/19/20 00:00 Nasal Cannula 2.0 09/19/20 00:00 67 09/19/20 00:00 97.7 71 18 119/67 (84) 99 09/18/20 20:00 80 09/18/20 20:00 Nasal Cannula 2.0 09/18/20 19:48 96.8 76 20 110/69 (83) 100 09/18/20 16:00 97.0 87 22 131/69 (89) 100 09/18/20 15:58 69 09/18/20 15:29 Nasal Cannula 2.0 I&O Intake and Output 09/18/20 09/19/20 19:00 07:00 Intake Total 195 ml 855 ml Output Total 750 ml 400 ml Balance -555 ml 455 ml Intake Oral 120 ml 30 ml IV Total 75 ml 825 ml Output Urine Total 750 ml 400 ml Dressing: saturated Cardiovascular: RSR Respiratory: decreased breath sounds Abdomen: soft, non-tender, present bowel sounds Extremities: no edema, no tenderness, no cyanosis Laboratory Tests Test 09/18/20 16:37 09/18/20 20:45 09/19/20 04:00 09/19/20 05:24 POC Whole Blood Glucose 163 MG/DL (74-106) H 151 MG/DL (74-106) H 124 MG/DL (74-106) H Sodium Level 145 MMOL/L (136-145) Potassium Level 3.0 MMOL/L (3.5-5.1) L Chloride Level 110 MMOL/L (98-107) H Carbon Dioxide Level 29 MMOL/L (21-32) Anion Gap 6 mmol/L (5-15) Blood Urea Nitrogen 24 mg/dL (7-18) H Creatinine 1.1 MG/DL (0.55-1.30) Estimat Glomerular Filtration Rate > 60 mL/min (>60) Glucose Level 102 MG/DL (74-106) Calcium Level 9.3 MG/DL (8.5-10.1) Magnesium Level 2.4 MG/DL (1.8-2.4) Test 09/19/20 07:36 09/19/20 09:50 09/19/20 10:40 POC Whole Blood Glucose 125 MG/DL (74-106) H 215 MG/DL (74-106) H White Blood Count 11.2 K/UL (4.8-10.8) H Red Blood Count 5.11 M/UL (4.70-6.10) Hemoglobin 13.6 G/DL (14.2-18.0) L Hematocrit 45.2 % (42.0-52.0) Mean Corpuscular Volume 89 FL (80-99) Mean Corpuscular Hemoglobin 26.7 PG (27.0-31.0) L Mean Corpuscular Hemoglobin Concent 30.1 G/DL (32.0-36.0) L Red Cell Distribution Width 14.4 % (11.6-14.8) Platelet Count 167 K/UL (150-450) Mean Platelet Volume 10.9 FL (6.5-10.1) H Neutrophils (%) (Auto) 79.2 % (45.0-75.0) H Lymphocytes (%) (Auto) 16.8 % (20.0-45.0) L Monocytes (%) (Auto) 3.4 % (1.0-10.0) Eosinophils (%) (Auto) 0.0 % (0.0-3.0) Basophils (%) (Auto) 0.7 % (0.0-2.0) Plan Problems: (1) Dehydration (2) CHF (congestive heart failure) (3) Hypernatremia (4) SANDEEP (acute kidney injury) (5) Hypoxia (6) Sepsis Assessment & Plan: 64-year-old male extensive medical history at baseline mental status without significant responsiveness alert unable to cooperate with exam presented from facility identified to have significant leukocytosis abnormal labs elevated LFTs with multiple skin concerns including deep tissue injury and opening near the buttock concerning for potential abscess. On evaluation this is more of a decubitus breakdown on the buttock right 1 cm by centimeter without drainage. It does not seem to be a prior abscess or current abscess. No I&D indicated at this time. Chest x-ray noted haziness currently Covid negative on initial examination potentially needs to be rechecked. No acute surgical intervention planned at this time. Okay for diet as tolerated via tube. Continue IV antibiotics per infectious disease. Respiratory as per pulmonology. Trend labs. Will follow with recommendations thank you for let me participate patient's care (7) UTI (urinary tract infection) (8) COVID-19 (9) Acute hypoxemic respiratory failure due to COVID-19 Jono Hernandez Sep 19, 2020 13:43
--- NOTE | 2020-09-19 14:00 | NUR ---
NURSE NOTES: 1:1 feeding done for breakfast and lunch. The patient tolerated well. Consumed 100% breakfast and 70% lunch. Will closely monitor the patient. Will continue plan of care.
[2020-09-19 16:00] VITALS: BP 122/73
--- NOTE | 2020-09-19 16:00 | NUR ---
NURSE NOTES: Bed bath given to the patient. The patient tolerated well. Will closely monitor the patient. Will continue plan of care.
--- NOTE | 2020-09-19 16:09 | Nephrology Progress Note ---
Assessment/Plan Plan Hypernatremia -resolving with hypotoniv IVF. Hypokelemia - correct. Subjective Subjective Confused Objective Objective Last 24 Hour Vital Signs Date Time Temp Pulse Resp B/P (MAP) Pulse Ox O2 Delivery O2 Flow Rate FiO2 09/19/20 16:01 95 09/19/20 12:00 97.2 78 16 128/79 (95) 100 09/19/20 12:00 72 09/19/20 12:00 Nasal Cannula 2.0 09/19/20 08:13 122/79 09/19/20 08:13 63 122/79 09/19/20 08:00 97.1 58 16 122/79 (93) 100 09/19/20 08:00 61 09/19/20 08:00 Nasal Cannula 2.0 09/19/20 04:00 97.5 71 16 132/74 (93) 100 09/19/20 04:00 68 09/19/20 04:00 Nasal Cannula 2.0 09/19/20 00:00 Nasal Cannula 2.0 09/19/20 00:00 67 09/19/20 00:00 97.7 71 18 119/67 (84) 99 09/18/20 20:00 80 09/18/20 20:00 Nasal Cannula 2.0 09/18/20 19:48 96.8 76 20 110/69 (83) 100 l Intake and Output 09/18/20 09/19/20 19:00 07:00 Intake Total 195 ml 855 ml Output Total 750 ml 400 ml Balance -555 ml 455 ml Intake Oral 120 ml 30 ml IV Total 75 ml 825 ml Output Urine Total 750 ml 400 ml Laboratory Tests 09/18/20 16:37: POC Whole Blood Glucose 163H 09/18/20 20:45: POC Whole Blood Glucose 151H 09/19/20 04:00: Sodium Level 145, Potassium Level 3.0L, Chloride Level 110H, Carbon Dioxide Level 29, Anion Gap 6, Blood Urea Nitrogen 24H, Creatinine 1.1, Estimat Glomerular Filtration Rate > 60, Glucose Level 102, Calcium Level 9.3, Magnesium Level 2.4 09/19/20 05:24: POC Whole Blood Glucose 124H 09/19/20 07:36: POC Whole Blood Glucose 125H 09/19/20 09:50: White Blood Count 11.2H, Red Blood Count 5.11, Hemoglobin 13.6L, Hematocrit 45.2, Mean Corpuscular Volume 89, Mean Corpuscular Hemoglobin 26.7L, Mean Corpuscular Hemoglobin Concent 30.1L, Red Cell Distribution Width 14.4, Platelet Count 167, Mean Platelet Volume 10.9H, Neutrophils (%) (Auto) 79.2H, Lymphocytes (%) (Auto) 16.8L, Monocytes (%) (Auto) 3.4, Eosinophils (%) (Auto) 0.0, Basophils (%) (Auto) 0.7 09/19/20 10:40: POC Whole Blood Glucose 215H Height (Feet): 6 Height (Inches): 0.00 Weight (Pounds): 263 Objective CV RR Lungs CTA Abd SNT. BS+ E + edema Josue Braun MD Sep 19, 2020 16:09
--- NOTE | 2020-09-19 17:00 | NUR ---
NURSE NOTES: BS 168 noted. Novolog administered per protocol. Will closely monitor the patient. Will continue plan of care.
--- NOTE | 2020-09-19 18:00 | NUR ---
TRANSFER TO FLOOR: Patient transferred to 212-2, per Dr. Walker's transfer to tele order. Report given to ROBERTO Mosley. The patient does not have belongings and medications given to ROBERTO Mosley. Family and or S/O informed of transfer. In short, the patient got safely transferred to 212-2 (telemetry) with primary and CRN support and stablized the patient. Endorsed plan of care to ROBERTO Mosley.
--- NOTE | 2020-09-19 18:36 | NUR ---
NURSE NOTES: receive pt from room 238-2. pt is asleep and arousable. non-verbal, responds to tactile stimuli. respiration is even and unlabored with O2@2 via NC. HOB elevated. placed call light within reach. no acute distress noted at this time.
--- NOTE | 2020-09-19 19:18 | NUR ---
HAND-OFF: Report given to SHYAM BISHOP RN.
[2020-09-19 20:00] VITALS: BP 130/83
--- NOTE | 2020-09-19 20:02 | NUR ---
NURSE NOTES: Received report from ROBERTO Jesus. Pt is awake, lethargic, A/Ox1 to name, able to follow some commands. No signs of acute distress or pain. SpO2 98% on 2L NC, SR with BBB on monitoring engineer. R IJ TLC intact, last dressing change 09/18. R FA 20g intact, asymptomatic. Condom cath drains well to gravity. Skin issues noted and wound care reinforced. HOB elevated, call light within reach, side rails x2, bed alarmed, locked, and in lowest position. Will continue plan of care. Will continue to monitor.
[2020-09-19] MEDS: Dyna-Hex 2% Top Sol 2oz TOPIC SCH (20:43)
[2020-09-19] MEDS: Vancomycin 1.25gm/250ml Premix IVPB SCH (20:45)
[2020-09-20] VITALS: BP 123/79
--- NOTE | 2020-09-20 00:16 | NUR ---
NURSE NOTES: Pt is asleep at this time. No pain or acute distress noted. Vital signs are stable. Will continue to monitor. Will continue plan of care.
--- NOTE | 2020-09-20 03:53 | NUR ---
NURSE NOTES: Cleaned and turned pt. No BM noted, condom cath was observed to be off and chux wet from urine. Linens and gowns changed, bed bath given. No acute distress or pain noted at this time. Will continue to monitor. Will continue plan of care.
[2020-09-20 04:00] VITALS: BP 119/79
[2020-09-20] MEDS: NovoLOG Insulin Flexpen SUBQ SCH ×3 (05:40→16:30)
--- NOTE | 2020-09-20 07:15 | NUR ---
NURSE HAND-OFF REPORT: Important Events on Shift:[No acute events during shift] Patient Status: [Stable] Diet: [Regular pureed moist honey thick nectar] Pending Orders: [NA] Pending Results/Labs:[NA] Pending MD notification:[NA] Latest Vital Signs: Temperature 97.4 , Pulse 67 , B/P 119 /79 , Respiratory Rate 16 , O2 SAT 94 , Non-Rebreather, O2 Flow Rate 2.0 . Vital Sign Comment: [Stable] EKG Rhythm: SR, BBB Rhythm change?: N Notified?: -MD MARYAM Cody Response: Latest Meeks Fall Score: 50 Fall Risk: High Risk Safety Measures: Call light Within Reach, Bed Alarm Zone 1, Side Rails Side Rails x3, Bed position Low and Locked. Fall Precautions: Yellow Socks Yellow Gown Door Sign Patient Fall Education Report given to [ROBERTO Reyes].
--- NOTE | 2020-09-20 07:18 | NUR ---
NURSE NOTES: Received report from ROBERTO Ely. The patient is resting on the bed without acute distress or shortness of breath. The patient is AAOX1 has flat affect, able to follow command, but non-verbal. Previous shift endorsed that patient is SR w/ BBB w/ HR of 50-70s on the lunchroom monitor. The patient is on 2L NC and the patient is tolerating well. The patient is on condom cath that is intact and patent and draining by gravity. Skin issue noted and dressing intact. The patient has R FA 20G PIV and R IJ TLC that are intact and patent. The patient's bed in the lowest position, call light in reach, and fall, aspiration, and seizure precautions reinforced. IV sites intact and patent. Will follow up the lab and order. Will closely monitor the patient. Will continue plan of care.
[2020-09-20 08:00] VITALS: BP 138/90
--- NOTE | 2020-09-20 08:53 | NUR ---
CASE MANAGEMENT:REVIEW 09/20/20 SI: SEPSIS. UTI. COVID PNA 99.5 69 20 123/79 95% ON 2L/NC IS: IV VANCOMYCIN Q12 IV ROCEPHIN Q24 IV DECADRON QD PROTONIX PO QD LISINOPRIL PO QD KEPPRA PO Q12 NORVASC PO QD HEPARIN SQ Q12 : FROM SDU....NOW ON TELEMETRY DCP: FROM [facility] [facility]
[2020-09-20] MEDS: Docusate 100mg cap ORAL SCH (08:58)
[2020-09-20] MEDS: Lisinopril 2.5mg tab ORAL SCH (08:58)
[2020-09-20] MEDS: levETIRAcetam 500mg/5ml Liquid ORAL SCH (08:58)
[2020-09-20] MEDS: dexAMETHasone 10mg/ml Inj IV SCH (08:59)
[2020-09-20] MEDS: Heparin 5000 units/ml inj SUBQ SCH (09:00)
[2020-09-20] MEDS: Vancomycin 1.25gm/250ml Premix IVPB SCH (09:02)
[2020-09-20 10:44] LABS: ANION GAP 8 mmol/L (5-15); BLOOD UREA NITROGEN 21 mg/dL (7-18); CALCIUM 8.8 MG/DL (8.5-10.1); CARBON DIOXIDE 27 MMOL/L (21-32); CHLORIDE 108 MMOL/L (98-107); CREATININE 0.9 MG/DL (0.55-1.30); POTASSIUM 3.1 MMOL/L (3.5-5.1); SODIUM 143 MMOL/L (136-145)
--- NOTE | 2020-09-20 10:51 | NUR ---
NURSE NOTES: Potassium value of 3.1, RN called and notified Dr. Walker, awaiting call back
--- NOTE | 2020-09-20 10:54 | NUR ---
NURSE NOTES: Received order from Dr. Walker, 40 kcl po. orders carried out
--- NOTE | 2020-09-20 11:04 | Infectious Diseases Prog Note ---
Assessment/Plan Assessment/Plan IMPRESSION: Sepsis with tachycardia and leukocytosis, UTI,with Proteus Hypoxemic respiratory failure improving suspected COVID-19 Diabetes mellitus, Acute renal failure, Hypernatremia, Obesity, Dehydration. Positive blood culture , likely contamination RECOMMENDATION: Continue with dexamethasone. Continue Rocephin Discontinue IV Vancomycin We will f/u COVID19 PCR. Case D/W lab Subjective ROS Limited/Unobtainable: Yes Constitutional: Reports: other - transferred from ANU to telemetry Allergies: Coded Allergies: No Known Allergies (Unverified , 09/15/20) Objective Last 24 Hour Vital Signs Date Time Temp Pulse Resp B/P (MAP) Pulse Ox O2 Delivery O2 Flow Rate FiO2 09/20/20 09:00 Nasal Cannula 2.0 09/20/20 08:59 72 135/90 09/20/20 08:58 138/90 09/20/20 08:00 56 09/20/20 08:00 97.3 72 20 138/90 (106) 97 09/20/20 04:00 97.4 69 16 119/79 (92) 94 09/20/20 04:00 67 09/20/20 00:00 99.5 69 20 123/79 (94) 95 09/20/20 00:00 71 09/19/20 21:54 78 09/19/20 20:00 98.5 78 18 130/83 (99) 95 09/19/20 20:00 Nasal Cannula 2.0 09/19/20 16:01 95 09/19/20 16:00 Nasal Cannula 2.0 09/19/20 16:00 97.3 75 16 122/73 (89) 100 09/19/20 12:00 97.2 78 16 128/79 (95) 100 09/19/20 12:00 72 09/19/20 12:00 Nasal Cannula 2.0 Height (Feet): 6 Height (Inches): 0.00 Weight (Pounds): 263 General Appearance: no acute distress HEENT: mucous membranes moist Respiratory/Chest: other - oxyen by nasal cannula Cardiovascular: normal rate Abdomen: soft, non tender Extremities: other - dependent edema Neurologic/Psychiatric: other - sleeping Laboratory Tests Test 09/19/20 16:13 09/19/20 21:18 09/20/20 05:24 09/20/20 09:20 POC Whole Blood Glucose 168 MG/DL (74-106) H 121 MG/DL (74-106) H 104 MG/DL (74-106) Sodium Level 143 MMOL/L (136-145) Potassium Level 3.1 MMOL/L (3.5-5.1) L Chloride Level 108 MMOL/L (98-107) H Carbon Dioxide Level 27 MMOL/L (21-32) Anion Gap 8 mmol/L (5-15) Blood Urea Nitrogen 21 mg/dL (7-18) H Creatinine 0.9 MG/DL (0.55-1.30) Estimat Glomerular Filtration Rate > 60 mL/min (>60) Glucose Level 96 MG/DL (74-106) Calcium Level 8.8 MG/DL (8.5-10.1) Current Medications Medications (Trade) Dose Ordered Sig/Ciro Route PRN Reason Start Time Stop Time Status Last Admin Dose Admin Acetaminophen (Tylenol) 650 mg Q4H PRN ORAL For Pain 09/16/20 02:15 10/16/20 02:14 Amlodipine Besylate (Norvasc) 5 mg DAILY ORAL 09/16/20 09:00 10/16/20 08:59 09/20/20 08:59 Ceftriaxone Sodium 1 gm/ Dextrose 55 ml @ 110 mls/hr Q24H IVPB 09/17/20 12:00 09/24/20 11:59 09/19/20 11:43 Chlorhexidine Gluconate (Aleyda-Hex 2%) 1 applic DAILY@2000 TOPIC 09/17/20 20:00 12/16/20 19:59 09/19/20 20:43 Clonidine HCl (Catapres Tab) 0.1 mg Q4H PRN ORAL sbp>170 09/16/20 09:15 12/15/20 09:14 Dexamethasone Sodium Phosphate (Decadron 10mg/ ml Inj) 6 mg DAILY IV 09/16/20 09:00 09/24/20 12:00 09/20/20 08:59 Dextrose (Dextrose 50%) 25 ml Q30M PRN IV Hypoglycemia 09/16/20 00:00 12/15/20 00:00 Dextrose (Dextrose 50%) 50 ml Q30M PRN IV Hypoglycemia 09/16/20 00:00 12/15/20 00:00 Docusate Sodium (Colace) 100 mg DAILY ORAL 09/16/20 09:00 10/16/20 08:59 09/20/20 08:58 Guaifenesin (Robitussin) 100 mg Q4H PRN ORAL FOR COUGH 09/16/20 02:15 12/15/20 02:14 09/19/20 14:42 Heparin Sodium (Porcine) (Heparin 5000 units/ml) 5,000 units EVERY 12 HOURS SUBQ 09/16/20 09:00 10/31/20 08:59 09/20/20 09:00 Insulin Aspart (NovoLOG) BEFORE MEALS AND HS SUBQ 09/16/20 06:30 12/15/20 06:29 09/19/20 16:39 Levetiracetam (Keppra) 1,000 mg EVERY 12 HOURS ORAL 09/16/20 09:00 10/16/20 08:59 09/20/20 08:58 Lisinopril (ZestriL) 5 mg DAILY ORAL 09/16/20 09:00 10/16/20 08:59 09/20/20 08:58 Lorazepam (Ativan 2mg/ml 1ml) 1 mg NEEDED PRN IV For Seizures 09/16/20 04:15 09/23/20 04:14 Pantoprazole (Protonix) 40 mg DAILY ORAL 09/16/20 09:00 10/16/20 08:59 09/20/20 08:58 Héctor Sow MD Sep 20, 2020 11:04
[2020-09-20] MEDS: cefTRIAXone 1 GM in D5W 55 ML IVPB SCH (11:17)
--- NOTE | 2020-09-20 11:34 | NUR ---
DISCHARGE PLANNING DISCHARGE PLAN DISCUSSED WITH DR RUTHERFORD FAXED CLINICALS TO [facility] T: [phone] F: [phone] SPOKE WITH ELISA AT [facility], HE IS REVIEWING THE CLINICALS AND CALL THIS SERVICE PARTS DRIVER BACK
[2020-09-20 12:00] VITALS: BP 131/79
--- NOTE | 2020-09-20 12:01 | Surgery Progress Note ---
Surgery Progress Note Subjective Additional Comments wbc trending down comfortable no n/v exam stable Objective Last 24 Hour Vital Signs Date Time Temp Pulse Resp B/P (MAP) Pulse Ox O2 Delivery O2 Flow Rate FiO2 09/20/20 09:00 Nasal Cannula 2.0 09/20/20 08:59 72 135/90 09/20/20 08:58 138/90 09/20/20 08:00 56 09/20/20 08:00 97.3 72 20 138/90 (106) 97 09/20/20 04:00 97.4 69 16 119/79 (92) 94 09/20/20 04:00 67 09/20/20 00:00 99.5 69 20 123/79 (94) 95 09/20/20 00:00 71 09/19/20 21:54 78 09/19/20 20:00 98.5 78 18 130/83 (99) 95 09/19/20 20:00 Nasal Cannula 2.0 09/19/20 16:01 95 09/19/20 16:00 Nasal Cannula 2.0 09/19/20 16:00 97.3 75 16 122/73 (89) 100 I&O Intake and Output 09/19/20 09/20/20 19:00 07:00 Intake Total 300 ml Output Total 800 ml 600 ml Balance -500 ml -600 ml Intake Oral 300 ml Output Urine Total 800 ml 600 ml # Voids 1 Laboratory Tests Test 09/19/20 16:13 09/19/20 21:18 09/20/20 05:24 09/20/20 09:20 POC Whole Blood Glucose 168 MG/DL (74-106) H 121 MG/DL (74-106) H 104 MG/DL (74-106) Sodium Level 143 MMOL/L (136-145) Potassium Level 3.1 MMOL/L (3.5-5.1) L Chloride Level 108 MMOL/L (98-107) H Carbon Dioxide Level 27 MMOL/L (21-32) Anion Gap 8 mmol/L (5-15) Blood Urea Nitrogen 21 mg/dL (7-18) H Creatinine 0.9 MG/DL (0.55-1.30) Estimat Glomerular Filtration Rate > 60 mL/min (>60) Glucose Level 96 MG/DL (74-106) Calcium Level 8.8 MG/DL (8.5-10.1) Test 09/20/20 11:20 POC Whole Blood Glucose 109 MG/DL (74-106) H Plan Problems: (1) Dehydration (2) CHF (congestive heart failure) (3) Hypernatremia (4) SANDEEP (acute kidney injury) (5) Hypoxia (6) Sepsis Assessment & Plan: 64-year-old male extensive medical history at baseline mental status without significant responsiveness alert unable to cooperate with exam presented from facility identified to have significant leukocytosis abnormal labs elevated LFTs with multiple skin concerns including deep tissue injury and opening near the buttock concerning for potential abscess. On evaluation this is more of a decubitus breakdown on the buttock right 1 cm by centimeter without drainage. It does not seem to be a prior abscess or current abscess. No I&D indicated at this time. Chest x-ray noted haziness currently Covid negative on initial examination potentially needs to be rechecked. No acute surgical intervention planned at this time. Okay for diet as tolerated via tube. Continue IV antibiotics per infectious disease. Respiratory as per pulmonology. Trend labs. Will follow with recommendations thank you for let me participate patient's care Pt presented on admission with Full thickness Pressure injury lower R bu ttocks(L)1cm x (W)0.8cm x (D)0.2cm. Base of wound is 75% granular,25% slough . Edges are flat and adherent to base of wound. Periwound is indurated with non- blanchable erythema. Hyperpigmentation noted to cleft of buttocks. scattered areas of darker skin tone without erythema or induration noted to sacrum. Atrophic scar with scattered maroon and fluctuant areas noted to L heel. DTPI noted to medial R heel.(L)2.2cm x (W)3cm. Base of pressure injury is indurated and maroon. Periwound is boggy with scattered areas of darker skin tone without erythema or induration noted. Bilat foot drop noted. Tx.Plan:Cleanse wound lower R buttocks with Saline. Apply Therahoney. Apply Moisture Barrier periwound. Cover with Optifoam drsg Daily and prn. Apply Moisture Barrier Paste to Sacrum. Cover with Optifoam drsg. Change every 3 days and prn. Apply Cavilon Skin Barrier to Both heels. Cover each heel with Optifoam drsg. Change every 7 days and prn. Reposition at least every 2hours or as tolerated. Off-load heels with pillows. APM/JAY Mattress overlay. (7) UTI (urinary tract infection) (8) COVID-19 (9) Acute hypoxemic respiratory failure due to COVID-19 Jono Hernandez Sep 20, 2020 12:01
--- NOTE | 2020-09-20 13:04 | General Progress Note ---
Subjective Allergies: Coded Allergies: No Known Allergies (Unverified , 09/15/20) Subjective care noted labs reviewed in ANU oxygen needs stable Objective Last 24 Hour Vital Signs Date Time Temp Pulse Resp B/P (MAP) Pulse Ox O2 Delivery O2 Flow Rate FiO2 09/20/20 12:00 97.4 71 22 131/79 (96) 97 09/20/20 12:00 76 09/20/20 09:00 Nasal Cannula 2.0 09/20/20 08:59 72 135/90 09/20/20 08:58 138/90 09/20/20 08:00 56 09/20/20 08:00 97.3 72 20 138/90 (106) 97 09/20/20 04:00 97.4 69 16 119/79 (92) 94 09/20/20 04:00 67 09/20/20 00:00 99.5 69 20 123/79 (94) 95 09/20/20 00:00 71 09/19/20 21:54 78 09/19/20 20:00 98.5 78 18 130/83 (99) 95 09/19/20 20:00 Nasal Cannula 2.0 09/19/20 16:01 95 09/19/20 16:00 Nasal Cannula 2.0 09/19/20 16:00 97.3 75 16 122/73 (89) 100 Intake and Output 09/19/20 09/20/20 19:00 07:00 Intake Total 300 ml Output Total 800 ml 600 ml Balance -500 ml -600 ml Intake Oral 300 ml Output Urine Total 800 ml 600 ml # Voids 1 Laboratory Tests 09/19/20 16:13: POC Whole Blood Glucose 168H 09/19/20 21:18: POC Whole Blood Glucose 121H 09/20/20 05:24: POC Whole Blood Glucose 104 09/20/20 09:20: Sodium Level 143, Potassium Level 3.1L, Chloride Level 108H, Carbon Dioxide Level 27, Anion Gap 8, Blood Urea Nitrogen 21H, Creatinine 0.9, Estimat Glomerular Filtration Rate > 60, Glucose Level 96, Calcium Level 8.8 09/20/20 11:20: POC Whole Blood Glucose 109H Height (Feet): 6 Height (Inches): 0.00 Weight (Pounds): 263 Objective deferred due to COVID Assessment/Plan Assessment/Plan: IMPRESSION: Sepsis pyuria, possible UTI, hypoxemic respiratory failure due to COVID-19 diabetes mellitus, acute renal failure, hypernatremia, obesity, dehydration. PLAN Decadron per ID---may switch to po oxygen as needed renal noted ID and cards noted DVT prophylaxis snf meds nutrition as able monitor labs and imaging dc planning today if able impression, plan, and exam edited and reviewed in detail care discussed with Sonido Redmond MD Sep 20, 2020 13:04
[2020-09-20] MEDS ORDERED: CEFTRIAXONE1 G1 IVPB (13:26)
[2020-09-20] MEDS ORDERED: DECADRON10 MG/ML IV (13:30)
--- NOTE | 2020-09-20 13:47 | Cardiac Electrophysiology PN ---
Assessment/Plan Assessment/Plan 1. S/p sinus tachycardia, due to sepsis and respiratory failure Initial rapid COVID was negative, but the PCR was pending. The patient's white count was also high 18,000 and is already on IV antibiotic. 2. Bradycardia. Betetr off Coreg 3. Bifascicular block with right bundle-branch block and left anterior fascicular block. 4. Status post hemorrhagic CVA and psych history, currently nonverbal. 5. Hypertension, on lisinopril 5 mg daily and amlodipine 5 mg daily. 6. Diabetes, on insulin. 7. Sepsis. Already started on IV antibiotics. Subjective Subjective Had 8 beats of NSVT. O2 decreased to 2 liter NC. At times gets [place] when sleeping Objective Last 24 Hour Vital Signs Date Time Temp Pulse Resp B/P (MAP) Pulse Ox O2 Delivery O2 Flow Rate FiO2 09/20/20 12:00 97.4 71 22 131/79 (96) 97 09/20/20 12:00 76 09/20/20 09:00 Nasal Cannula 2.0 09/20/20 08:59 72 135/90 09/20/20 08:58 138/90 09/20/20 08:00 56 09/20/20 08:00 97.3 72 20 138/90 (106) 97 09/20/20 04:00 97.4 69 16 119/79 (92) 94 09/20/20 04:00 67 09/20/20 00:00 99.5 69 20 123/79 (94) 95 09/20/20 00:00 71 09/19/20 21:54 78 09/19/20 20:00 98.5 78 18 130/83 (99) 95 09/19/20 20:00 Nasal Cannula 2.0 09/19/20 16:01 95 09/19/20 16:00 Nasal Cannula 2.0 09/19/20 16:00 97.3 75 16 122/73 (89) 100 Intake and Output 09/19/20 09/20/20 19:00 07:00 Intake Total 300 ml Output Total 800 ml 600 ml Balance -500 ml -600 ml Intake Oral 300 ml Output Urine Total 800 ml 600 ml # Voids 1 Laboratory Tests Test 09/19/20 16:13 09/19/20 21:18 09/20/20 05:24 09/20/20 09:20 POC Whole Blood Glucose 168 MG/DL (74-106) H 121 MG/DL (74-106) H 104 MG/DL (74-106) Sodium Level 143 MMOL/L (136-145) Potassium Level 3.1 MMOL/L (3.5-5.1) L Chloride Level 108 MMOL/L (98-107) H Carbon Dioxide Level 27 MMOL/L (21-32) Anion Gap 8 mmol/L (5-15) Blood Urea Nitrogen 21 mg/dL (7-18) H Creatinine 0.9 MG/DL (0.55-1.30) Estimat Glomerular Filtration Rate > 60 mL/min (>60) Glucose Level 96 MG/DL (74-106) Calcium Level 8.8 MG/DL (8.5-10.1) Test 09/20/20 11:20 POC Whole Blood Glucose 109 MG/DL (74-106) H Objective HEAD AND NECK: Showed no JVD. LUNGS: Coarse rhonchi. CARDIOVASCULAR: Shows regular S1 and S2 with no gallop. ABDOMEN: Soft. EXTREMITIES: He has contractures. Catracho Lundy MD Sep 20, 2020 13:46
--- NOTE | 2020-09-20 15:14 | NUR ---
*-*DISCHARGE PLANNED*-* PATIENT HAS BEEN ACCEPTED AND WILL BE DISCHARGED BACK TO: [facility] P: [phone] FOR NURSE TO NURSE REPORT ROOM# 211.B AMBULANCE TRANSPORTATION SET FOR 4:30PM S/W ALBERTO WITH "[facility]" P: [phone]. S/W PATIENTS FAMILY, DIPIKA HIGHTOWER, WHO IS IN AGREEMENT WITH DISCHARGE PLAN.
--- NOTE | 2020-09-20 15:15 | NUR ---
NURSE NOTES: RN called [facility] and gave report to Nora, receiving RN. RN endorsed that patient will be d/c with jones and medication will be followed up by Dr. Cody. Patient is AAOX4, bed bound and able to make needs known. Packet printed out, belongings signed and verified with patient. Patient discharged in stable condition. Ambulance personnel picked up patient, IV site removed as well as patients arm band. Wound pictures taken and uploaded. RN left call back number for further questions. Patient transferred from room to [facility] and to ambulance safely Addendum: 09/20/20 at 1520 by Eric Castellanos RN wrong patient
[2020-09-20 16:00] VITALS: BP 127/87
--- NOTE | 2020-09-20 16:25 | NUR ---
*-*DISCHARGE PLANNED*-* PATIENT HAS BEEN ACCEPTED AND WILL BE DISCHARGED BACK TO: [facility] P: [phone] FOR NURSE TO NURSE REPORT ROOM# 211.B AMBULANCE TRANSPORTATION SET FOR 6:30PM S/W ALBERTO WITH "[facility]" P: [phone]. S/W PATIENTS FAMILY, DIPIKA HIGHTOWER, WHO IS IN AGREEMENT WITH DISCHARGE PLAN.
--- NOTE | 2020-09-20 16:28 | NUR ---
NURSE NOTES: RN called [facility] and gave report to YOGI Jacques. RN endorsed that patient is AAOx1 to his name, lethargic but able to follow simple commands. RN made Yogi Jacques aware that patient will be going with [facility] triple [facility] for IV medication that will be followed up by Dr. Walker at the facility. Discharge packet printed out, patient has no belongings. [facility] set to pick and shovel man around [phone]. RN left call back number. Will await pick and shovel man
[2020-09-20] MEDS ORDERED: Tubing IV Secondary IV ONE (16:58)
[2020-09-20] MEDS ORDERED: NS 275ml ONE (16:58)
--- NOTE | 2020-09-20 17:55 | NUR ---
NURSE NOTES: RN called [facility] and spoke with cliff to confirm scheduled pick pack worker. Patient will be picked up at 1830
--- NOTE | 2020-09-20 19:37 | NUR ---
NURSE HAND-OFF REPORT: Important Events on Shift: Patient D/c with [facility] Patient Status: stable Diet: regular pureed moist Pending Orders: n/a Pending Results/Labs:n/a Pending MD notification:n/a Latest Vital Signs: Temperature 97.5 , Pulse 76 , B/P 127 /87 , Respiratory Rate 20 , O2 SAT 97 , Non-Rebreather, O2 Flow Rate 2.0 . Vital Sign Comment: EKG Rhythm: SR WITH BBB Rhythm change?: N Notified?: Kevin Parada MD MD Response: Latest Meeks Fall Score: 50 Fall Risk: High Risk Safety Measures: Call light Within Reach, Bed Alarm Zone 1, Side Rails Side Rails x3, Bed position Low and Locked. Fall Precautions: Yellow Socks Yellow Gown Door Sign Patient Fall Education Report given to ROBERTO Alvarez.
--- NOTE | 2020-09-20 19:51 | NUR ---
NURSE NOTES: Pt. received from ROBERTO Reyes, pt. immediately discharged with [facility] a [facility]. IV access intact for IV medications at SNF. Pt. stable, no belongings brought with pt at admission.
--- NOTE | 2020-09-21 12:43 | NUR ---
INSURANCE DC INSTRUCTIONS FAXED TO [facility] T: [phone] F: [phone]
--- NOTE | 2020-09-21 17:02 | Discharge Summary ---
Discharge Summary Discharge Summary _ Date of admission: 09/15/2020 Date of discharge: 09/20/[address] Walker History of Present Illness and Brief Hospital Course Mr. Julien is a 64-year-old male with history of anoxic brain injury, secondary to previous hemorrhagic stroke, insulin-dependent diabetes, neuropathy, CAD, dy slipidemia, aortic atherosclerosis, SVT, anemia, bilateral lower extremity contractured, GERD, esophagitis, and major depressive disorder, who was sent to ED from SNF for evaluation of hypoxia. Patient was found to be bradycardic and hypotensive. Patient was placed on nonrebreather facemask given his hypoxia on arrival. His initial vitals showed tachycardia, hypothermia, and hypoxia. He initially tested negative for COVID-19 via rapid gene assay in the ER. His urinalysis showed signs of UTI. His chest x-ray revealed perihilar infiltrate, left lower lobe atelectasis, and cardiomegaly without pneumothorax. Right IJ central line was placed due to difficult peripheral IV access. He was started on empiric antibiotics and was admitted to the hospital for further care and evaluation. His follow-up urine culture grew Proteus mirabilis. His empiric antibiotic was changed from cefepime to Rocephin. Given his hypoxia on arrival, patient was continued on supplemental oxygen. Despite initial negative result on COVID-19 via rapid gene assay, COVID-19 PCR was positive. The supplemental oxygen was able to be weaned down later to nasal cannula and he was able to tolerate room air eventually. Patient also presented with deep tissue injury and was evaluated for potential abscess. No acute surgical intervention was planned at this time. On the day of his discharge he was medically stable. He was discharged back to SNF in stable condition. Consultants: Cardiology Dr. Lundy Infectious disease Dr. Sow Nephrology Dr. Braun Surgery Dr. Hernandez Discharge Condition Improved and stable Final diagnoses Sinus tachycardia Bradycardia Bifascicular block with right bundle branch block Status post hemorrhagic CVA Hypertension Diabetes mellitus Sepsis Proteus UTI Hypoxemic respiratory failure COVID-19 Acute renal failure Hyponatremia Obesity Dehydration Pyuria Full-thickness pressure injury lower right buttock History of CHF I have been assigned to dictate discharge summary for this account. I was not involved in the patient's management Nathan Hobbs Sep 21, 2020 17:02
--- NOTE | 2020-09-22 13:28 | NUR ---
INSURANCE DC SUMMARY FAXED TO [facility] T: [phone] F: [phone]
== END 2020-09-20 20:00 | DRG 720 ==
LOC: EDBD 15:56 → EMR 16:27 → EDBEDREQ 18:03 → EDBEDREQSVC 18:20 → 2W 19:15 → EDBEDREQ 20:43 → 2E 09-19 17:50
DX: A41.89 Other specified sepsis (principal); U07.1 COVID-19; J96.01 Acute respiratory failure with hypoxia; N17.9 Acute kidney failure, unspecified; E87.0 Hyperosmolality and hypernatremia; E11.9 Type 2 diabetes mellitus without complications; E86.0 Dehydration; Z79.4 Long term (current) use of insulin; I69.398 Other sequelae of cerebral infarction; G93.1 Anoxic brain damage, not elsewhere classified; I25.10 Atherosclerotic heart disease of native coronary artery without angina pectoris; E66.9 Obesity, unspecified; E78.5 Hyperlipidemia, unspecified; N39.0 Urinary tract infection, site not specified; B96.4 Proteus (mirabilis) (morganii) as the cause of diseases classified elsewhere; I45.2 Bifascicular block; L89.313 Pressure ulcer of right buttock, stage 3; I11.0 Hypertensive heart disease with heart failure; I50.9 Heart failure, unspecified; G40.909 Epilepsy, unspecified, not intractable, without status epilepticus; K21.9 Gastro-esophageal reflux disease without esophagitis; M24.59 Contracture, other specified joint
CPT/HCPCS: 36415; 71045; 80048; 80053; 81003; 82550; 82728; 82962; 83605; 83615; 83690; 83735; 83880; 84100; 84439; 84443; 84484; 85007; 85025; 85379; 85610; 85651; 85730; 86140; 87040; 87081; 87086; 87181; 93005; 93306; 96361; 96365; 96367; 96375; 99291; 99292; J7030; J8499; U0002